=== PATIENT | male | born 1950 | race Caucasian/White ===

== ENCOUNTER → 2016-10-20 | Outpatient (CLI) | payer OTHER ==
[~2016-10-20] MED LIST: ASP81TEC; CHOLESTEROL MED; MTP25TSR; OMEP20CA6 PO; PRAV80TA2 PO; SMV10T
[2016-10-20 11:33] LABS: ANION GAP 9 MMOL/L (5-14); BLOOD UREA NITROGEN 8 MG/DL (7-18); BUN/CREATININE RATIO 9; CARBON DIOXIDE 26 MMOL/L (21-32); CHLORIDE 103 MMOL/L (98-107); CREATININE SERUM 0.87 MG/DL (0.60-1.30); POTASSIUM 4.3 MMOL/L (3.6-5.0); SODIUM 138 MMOL/L (135-145)
[2016-10-20 11:34] LABS: ALANINE AMINOTRANSFERASE 25 U/L (0-55); ALBUMIN 4.3 G/DL (3.2-4.5); ASPARTATE AMINO TRANSFERASE 24 U/L (5-34); BILIRUBIN,TOTAL 0.9 MG/DL (0.1-1.0); CALCIUM 9.5 MG/DL (8.5-10.1); CHOLESTEROL 162 MG/DL (< 200); DIRECT LDL 88 MG/DL (1-129); GFR ESTIMATED > 60; GLUCOSE 101 MG/DL (70-105); TOTAL PROTEIN 7.2 G/DL (6.4-8.2); TRIGLYCERIDES 95 MG/DL (<150); VLDL CHOLESTEROL 19 MG/DL (5-40)
== END ==
LOC: LAB 10:47
PROVIDERS: ATTEND Nurse Practitioner Family
DX: E78.5 Hyperlipidemia, unspecified (principal); I25.10 Atherosclerotic heart disease of native coronary artery without angina pectoris
CPT/HCPCS: 36415; 80053; 80061

== ENCOUNTER → 2017-05-06 | Outpatient (CLI) | payer OTHER ==
[2017-05-06 14:36] LABS: ALANINE AMINOTRANSFERASE 19 U/L (0-55); ALBUMIN 4.3 GM/DL (3.2-4.5); ANION GAP 12 MMOL/L (5-14); ASPARTATE AMINO TRANSFERASE 23 U/L (5-34); BLOOD UREA NITROGEN 8 MG/DL (7-18); BUN/CREATININE RATIO 10; CALCIUM 9.6 MG/DL (8.5-10.1); CARBON DIOXIDE 22 MMOL/L (21-32); CHLORIDE 104 MMOL/L (98-107); CHOLESTEROL 147 MG/DL (< 200); CREATININE SERUM 0.83 MG/DL (0.60-1.30); DIRECT LDL 87 MG/DL (1-129); GFR ESTIMATED > 60; GLUCOSE 97 MG/DL (70-105); SODIUM 138 MMOL/L (135-145); TOTAL PROTEIN 7.5 GM/DL (6.4-8.2); TRIGLYCERIDES 87 MG/DL (<150); VLDL CHOLESTEROL 17 MG/DL (5-40)
== END ==
LOC: LAB 13:51
PROVIDERS: ATTEND Nurse Practitioner Family
DX: I25.10 Atherosclerotic heart disease of native coronary artery without angina pectoris (principal); E78.5 Hyperlipidemia, unspecified
CPT/HCPCS: 36415; 80053; 80061

== ENCOUNTER → 2017-11-23 | Outpatient (CLI) | payer SELFPAY ==
[2017-11-23 15:03] LABS: ALANINE AMINOTRANSFERASE 24 U/L (0-55); ALBUMIN 4.5 GM/DL (3.2-4.5); ALKALINE PHOSPHATASE 80 U/L (40-136); BUN/CREATININE RATIO 13; CALCIUM 9.7 MG/DL (8.5-10.1); CARBON DIOXIDE 28 MMOL/L (21-32); CHLORIDE 104 MMOL/L (98-107); CHOLESTEROL 157 MG/DL (< 200); CREATININE SERUM 0.87 MG/DL (0.60-1.30); GFR ESTIMATED > 60; GLUCOSE 96 MG/DL (70-105); HDL CHOLESTEROL 58 MG/DL (40-60); POTASSIUM 4.2 MMOL/L (3.6-5.0); SODIUM 138 MMOL/L (135-145); TOTAL PROTEIN 7.6 GM/DL (6.4-8.2); TRIGLYCERIDES 75 MG/DL (<150); VLDL CHOLESTEROL 15 MG/DL (5-40)
== END ==
LOC: LAB 14:14
PROVIDERS: ATTEND Nurse Practitioner Family
DX: I25.10 Atherosclerotic heart disease of native coronary artery without angina pectoris (principal); E78.5 Hyperlipidemia, unspecified
CPT/HCPCS: 36415; 80053; 80061

== ENCOUNTER → 2018-05-25 | Outpatient (CLI) | payer OTHER ==
[2018-05-25 11:35] LABS: ALANINE AMINOTRANSFERASE 25 U/L (0-55); ALBUMIN 4.4 GM/DL (3.2-4.5); ALKALINE PHOSPHATASE 87 U/L (40-136); BUN/CREATININE RATIO 13; CALCIUM 9.6 MG/DL (8.5-10.1); CARBON DIOXIDE 24 MMOL/L (21-32); CHLORIDE 105 MMOL/L (98-107); CHOLESTEROL 137 MG/DL (< 200); CREATININE SERUM 0.85 MG/DL (0.60-1.30); GFR ESTIMATED > 60; GLUCOSE 103 MG/DL (70-105); HDL CHOLESTEROL 37 MG/DL (40-60); POTASSIUM 4.3 MMOL/L (3.6-5.0); SODIUM 137 MMOL/L (135-145); TOTAL PROTEIN 7.2 GM/DL (6.4-8.2); TRIGLYCERIDES 60 MG/DL (<150); VLDL CHOLESTEROL 12 MG/DL (5-40)
== END ==
LOC: LAB 11:00
PROVIDERS: ATTEND Nurse Practitioner Family
DX: E78.5 Hyperlipidemia, unspecified (principal); I25.10 Atherosclerotic heart disease of native coronary artery without angina pectoris; I65.29 Occlusion and stenosis of unspecified carotid artery
CPT/HCPCS: 36415; 80053; 80061

== ENCOUNTER → 2018-07-20 | Outpatient (CLI) | payer MEDICARE, OTHER ==
[~2018-07-20] VITALS: Ht 180.3 cm; Wt 86.6 kg
[~2018-07-20] MED LIST changes: +CATHETER FLUSH 10 ML SYR IV PRN; +REGADENOSON 0.4 MG/5 ML SYR (LEXISCAN) IV ONE
[2018-07-20 09:11] VITALS: BP 135/90
[2018-07-20 09:16] VITALS: BP 128/94
--- NOTE | 2018-07-20 12:34 | STRESS TEST ---
DATE OF SERVICE: 07/20/2018 RESTING AND POST REGADENOSON TECHNETIUM-99M TETROFOSMIN SPECT CT IMAGING ORDERING PHYSICIAN: Dinorah Yan APRN CLINICAL DIAGNOSES: Chest discomfort, coronary artery disease. Baseline images were carried out after injection of 10.92 mCi of technetium-99m Tetrofosmin. This was followed by 0.4 mg of regadenoson and 31.7 mCi of technetium-99m Tetrofosmin for stress imaging. The electrocardiogram showed sinus rhythm at baseline and it did not change significantly with the regadenoson infusion. The patient tolerated the procedure well. Review of images at rest and following stress does not indicate any significant perfusion defect consistent with significant myocardial ischemia or infarction. Gated images show normal global left ventricular systolic function with normal regional wall motion. Left ventricular ejection fraction is calculated to be 65%. Left ventricular end diastolic volume is 53 mL. TID is absent (0.93). CONCLUSIONS: 1. No evidence of any significant myocardial ischemia or infarction on this study. 2. Normal regional wall motion. 3. Normal global left ventricular systolic function with a calculated ejection fraction of 65%. Job ID: [id number] DocumentID: [id number] Dictated Date: 07/20/2018 12:25:25 Concrete Boom Operator Date: 07/20/2018 12:33:30 Dictated By: ANASTASIA EASTON MD, MA, FACP, FACC,
== END ==
LOC: CARD 07:40
PROVIDERS: ATTEND Nurse Practitioner Family
DX: I25.10 Atherosclerotic heart disease of native coronary artery without angina pectoris (principal); R07.89 Other chest pain; I77.89 Other specified disorders of arteries and arterioles; E78.5 Hyperlipidemia, unspecified
CPT/HCPCS: 78452; 93017

== ENCOUNTER → 2019-03-07 | Outpatient (CLI) | payer MEDICARE ==
[~2019-03-07] MED LIST changes: -CATHETER FLUSH 10 ML SYR IV PRN; -REGADENOSON 0.4 MG/5 ML SYR (LEXISCAN) IV ONE
[2019-03-07 12:53] LABS: BASOPHILS # (AUTO) 0.1 10^3/uL (0.0-0.1); BASOPHILS % (AUTO) 1 % (0-10); EOSINOPHILS # (AUTO) 0.1 10^3/uL (0.0-0.3); EOSINOPHILS % (AUTO) 2 % (0-10); HEMATOCRIT 46 % (40-54); HEMOGLOBIN 15.5 G/DL (13.3-17.7); LYMPHOCYTES # (AUTO) 2.9 X 10^3 (1.0-4.0); LYMPHOCYTES % (AUTO) 40 % (12-44); MEAN CORPUSCULAR HEMOGLOBIN 32 PG (25-34); MEAN CORPUSCULAR HGB CONC 34 G/DL (32-36); MEAN CORPUSCULAR VOLUME 95 FL (80-99); MEAN PLATELET VOLUME 10.3 FL (7.4-10.4); MONOCYTES # (AUTO) 0.6 X 10^3 (0.0-1.0); MONOCYTES % (AUTO) 8 % (0-12); NEUTROPHILS # (AUTO) 3.6 X 10^3 (1.8-7.8); NEUTROPHILS % (AUTO) 49 % (42-75); PLATELET COUNT 193 10^3/uL (130-400); RED CELL DISTRIBUTION WIDTH 13.1 % (10.0-14.5); WHITE BLOOD COUNT 7.3 10^3/uL (4.3-11.0)
[2019-03-07 13:19] LABS: ALANINE AMINOTRANSFERASE 17 U/L (0-55); ALBUMIN 4.2 GM/DL (3.2-4.5); ALKALINE PHOSPHATASE 66 U/L (40-136); BILIRUBIN,TOTAL 1.1 MG/DL (0.1-1.0); BUN/CREATININE RATIO 14; CALCIUM 9.5 MG/DL (8.5-10.1); CARBON DIOXIDE 23 MMOL/L (21-32); CHLORIDE 108 MMOL/L (98-107); CHOLESTEROL 141 MG/DL (< 200); CREATININE SERUM 0.86 MG/DL (0.60-1.30); GFR ESTIMATED > 60; GLUCOSE 98 MG/DL (70-105); HDL CHOLESTEROL 52 MG/DL (40-60); POTASSIUM 4.1 MMOL/L (3.6-5.0); SODIUM 139 MMOL/L (135-145); TOTAL PROTEIN 6.9 GM/DL (6.4-8.2); TRIGLYCERIDES 61 MG/DL (<150); VLDL CHOLESTEROL 12 MG/DL (5-40)
[2019-03-07 13:39] LABS: ERYTHROCYTE SEDIMENTATION RATE 5 MM/HR (0-30)
== END ==
LOC: LAB 12:40
PROVIDERS: ATTEND Internal Medicine Cardiovascular Disease
DX: I25.10 Atherosclerotic heart disease of native coronary artery without angina pectoris (principal); E78.5 Hyperlipidemia, unspecified; J44.9 Chronic obstructive pulmonary disease, unspecified; Z72.0 Tobacco use
CPT/HCPCS: 36415; 80053; 80061; 83735; 85025; 85652

== ENCOUNTER → 2019-10-04 | Outpatient (CLI) | payer MEDICARE ==
[2019-10-04 10:20] LABS: ALANINE AMINOTRANSFERASE 22 U/L (0-55); ALBUMIN 4.1 GM/DL (3.2-4.5); ALKALINE PHOSPHATASE 64 U/L (40-136); BILIRUBIN,TOTAL 1.1 MG/DL (0.1-1.0); BUN/CREATININE RATIO 13; CALCIUM 9.6 MG/DL (8.5-10.1); CARBON DIOXIDE 25 MMOL/L (21-32); CHLORIDE 104 MMOL/L (98-107); CHOLESTEROL 142 MG/DL (< 200); CREATININE SERUM 0.88 MG/DL (0.60-1.30); GFR ESTIMATED > 60; GLUCOSE 102 MG/DL (70-105); HDL CHOLESTEROL 58 MG/DL (40-60); POTASSIUM 4.3 MMOL/L (3.6-5.0); SODIUM 138 MMOL/L (135-145); TOTAL PROTEIN 6.8 GM/DL (6.4-8.2); TRIGLYCERIDES 84 MG/DL (<150); VLDL CHOLESTEROL 17 MG/DL (5-40)
== END ==
LOC: LAB 09:49
PROVIDERS: ATTEND Nurse Practitioner Family
DX: I25.10 Atherosclerotic heart disease of native coronary artery without angina pectoris (principal); E78.5 Hyperlipidemia, unspecified
CPT/HCPCS: 36415; 80053; 80061

== ENCOUNTER → 2020-03-27 | Outpatient (CLI) | payer MEDICARE ==
[2020-03-27 08:37] LABS: ALANINE AMINOTRANSFERASE 19 U/L (0-55); ALBUMIN 4.1 GM/DL (3.2-4.5); ALKALINE PHOSPHATASE 71 U/L (40-136); BILIRUBIN,TOTAL 1.2 MG/DL (0.1-1.0); BUN/CREATININE RATIO 15; CALCIUM 9.2 MG/DL (8.5-10.1); CARBON DIOXIDE 22 MMOL/L (21-32); CHLORIDE 107 MMOL/L (98-107); CHOLESTEROL 138 MG/DL (< 200); CREATININE SERUM 0.85 MG/DL (0.60-1.30); GFR ESTIMATED > 60; GLUCOSE 107 MG/DL (70-105); HDL CHOLESTEROL 55 MG/DL (40-60); POTASSIUM 4.2 MMOL/L (3.6-5.0); SODIUM 139 MMOL/L (135-145); TRIGLYCERIDES 45 MG/DL (<150); VLDL CHOLESTEROL 9 MG/DL (5-40)
== END ==
LOC: LAB 07:58
PROVIDERS: ATTEND Nurse Practitioner Family
DX: I25.10 Atherosclerotic heart disease of native coronary artery without angina pectoris (principal); E78.5 Hyperlipidemia, unspecified
CPT/HCPCS: 36415; 80053; 80061

== ENCOUNTER → 2020-06-19 | Outpatient (CLI) | payer MEDICARE ==
[~2020-06-19] VITALS: Ht 180 cm; Wt 84.0 kg
[~2020-06-19] MED LIST changes: +REGADENOSON 0.4 MG/5 ML SYR (LEXISCAN) IV ONE
[2020-06-19] MEDS: CATHETER FLUSH 10 ML SYR IV PRN ×2 (08:33→09:47)
[2020-06-19 09:46] VITALS: BP 140/74
--- NOTE | 2020-06-19 20:44 | STRESS TEST ---
DATE OF SERVICE: 06/19/2020 RESTING AND POST REGADENOSON TECHNETIUM-99M TETROFOSMIN SPECT CT IMAGING ORDERING PHYSICIAN: Dr. Doss. PRIMARY PHYSICIAN: [facility]. CLINICAL DIAGNOSES: Coronary artery disease. Baseline images were carried out after injection of 1.07 mCi of technetium-99m Tetrofosmin. This was followed by 0.4 mg regadenoson and 29.8 mCi of technetium-99M Tetrofosmin for stress imaging. The electrocardiogram showed sinus rhythm at baseline. It did not change significantly with regadenoson infusion. The patient tolerated the procedure well. Review of images at rest and following stress does not indicate any distinct perfusion defects consistent with significant myocardial ischemia or infarction. Some degree of diaphragmatic attenuation seen both at rest and following regadenoson infusion. Gated images show normal global left ventricular systolic function with normal regional wall motion, including the diaphragmatic wall of the left ventricle. Left ventricular ejection fraction is calculated to be 50%. Left ventricular end diastolic volume is 67 mL. TID is absent (1.03). CONCLUSIONS: 1. No evidence of any significant myocardial ischemia or infarction on this study. 2. Normal regional wall motion. 3. Normal global left ventricular systolic function with a calculated ejection fraction of 50%. Job ID: [id number] DocumentID: [id number] Dictated Date: 06/19/2020 14:09:23 Peanut Grader Date: 06/19/2020 20:43:38 Dictated By: ANASTASIA DOSS MD, MA, FACP, FACC,
== END ==
LOC: CARD 08:30
PROVIDERS: ATTEND Internal Medicine Cardiovascular Disease
DX: I25.10 Atherosclerotic heart disease of native coronary artery without angina pectoris (principal); J44.9 Chronic obstructive pulmonary disease, unspecified; K21.9 Gastro-esophageal reflux disease without esophagitis; E78.5 Hyperlipidemia, unspecified; I65.29 Occlusion and stenosis of unspecified carotid artery; Z72.0 Tobacco use
CPT/HCPCS: 78452; 93017; A9502

== ENCOUNTER → 2020-09-12 | Outpatient (CLI) | payer MEDICARE ==
[~2020-09-12] MED LIST changes: -REGADENOSON 0.4 MG/5 ML SYR (LEXISCAN) IV ONE
[2020-09-12 10:57] LABS: ALANINE AMINOTRANSFERASE 25 U/L (0-55); ALBUMIN 4.4 GM/DL (3.2-4.5); ALKALINE PHOSPHATASE 82 U/L (40-136); BILIRUBIN,TOTAL 1.3 MG/DL (0.1-1.0); BUN/CREATININE RATIO 9; CALCIUM 9.4 MG/DL (8.5-10.1); CARBON DIOXIDE 25 MMOL/L (21-32); CHLORIDE 104 MMOL/L (98-107); CHOLESTEROL 151 MG/DL (< 200); CREATININE SERUM 0.85 MG/DL (0.60-1.30); GFR ESTIMATED > 60; GLUCOSE 103 MG/DL (70-105); HDL CHOLESTEROL 62 MG/DL (40-60); POTASSIUM 4.3 MMOL/L (3.6-5.0); SODIUM 138 MMOL/L (135-145); TOTAL PROTEIN 7.7 GM/DL (6.4-8.2); TRIGLYCERIDES 110 MG/DL (<150); VLDL CHOLESTEROL 22 MG/DL (5-40)
== END ==
LOC: LAB 10:16
PROVIDERS: ATTEND Nurse Practitioner Family
DX: I25.10 Atherosclerotic heart disease of native coronary artery without angina pectoris (principal); E78.5 Hyperlipidemia, unspecified
CPT/HCPCS: 36415; 80053; 80061

== ENCOUNTER → 2020-11-23 | Outpatient (CLI) | payer MEDICARE ==
--- NOTE | 2020-11-23 13:49 | Diagnostic Imaging Report ---
PROCEDURE: CT chest without contrast. TECHNIQUE: Multiple contiguous axial images were obtained through the chest without the use of intravenous contrast. Auto Exposure Controls were utilized during the CT exam to meet ALARA standards for radiation dose reduction. INDICATION: Tobaccoism COMPARISON: No priors. There is heterogeneous air trapping and features of centrilobular emphysema diffusely. Lung hyperexpansion is symmetric. There are very mild basilar zones of partial atelectasis. No evidence for pneumonia. No soft tissue density, lung mass and no suspicious pulmonary nodule. There is a moderate-sized retrocardiac hernia. No lymphadenopathy. The thoracic aorta is nonaneurysmal. There is no effusion or pneumothorax. No acute soft tissue or osseous chest wall pathology. Upper abdomen shows a fat-containing left adrenal circumscribed nodule 2.1 cm consistent with benign adenoma. There is either sludge or tiny minimally calcified stones layering within the nondilated gallbladder. IMPRESSION: Centrilobular emphysema, hiatal hernia, cholelithiasis and/or gallbladder sludge with benign fat-containing left adrenal nodule. Dictated by: Dictated on workstation # [id number]
== END ==
LOC: RAD 13:45
PROVIDERS: ATTEND Pediatrics
DX: J43.2 Centrilobular emphysema (principal); K44.9 Diaphragmatic hernia without obstruction or gangrene; K80.20 Calculus of gallbladder without cholecystitis without obstruction; E27.8 Other specified disorders of adrenal gland; Z72.0 Tobacco use
CPT/HCPCS: 71250

== ENCOUNTER 2021-03-18 05:39 | Outpatient (CLI) | payer MEDICARE ==
[~2021-03-18] VITALS: Ht 180.3 cm; Wt 84.0 kg
[2021-03-18] MEDS ORDERED: TIOT4MIS5 IH (14:11)
== END 2021-03-18 15:42 | disposition home or self-care (01) ==
LOC: PREOP 05:39
PROVIDERS: ATTEND Surgery
DX: Z01.818 Encounter for other preprocedural examination (principal)

== ENCOUNTER 2021-03-25 07:28 | Day surgery (SDC) | payer MEDICARE ==
[~2021-03-25] VITALS: Ht 180.3 cm; Wt 84.0 kg
[~2021-03-25 07:28] MED LIST changes: +TIOT4MIS5 IH
[2021-03-25] MEDS ORDERED: LACTATED RINGERS 1,000 ML IV STA (07:37)
[2021-03-25] MEDS ORDERED: LACTATED RINGERS 1,000 ML IV ONE (07:39)
[2021-03-25] MEDS ORDERED: MIDAZOLAM 2 MG/2 ML (VERSED) VIAL ONE (07:41)
[2021-03-25] MEDS ORDERED: PROPOFOL INJECTION 50 ML IV ONE (07:41)
[2021-03-25 07:45] VITALS: BP 114/79
--- NOTE | 2021-03-25 08:26 | Progress Note-Pre Operative ---
Pre-Operative Progress Note H&P Reviewed The H&P was reviewed, patient examined and no changes noted. Time Seen by Provider: 08:21 Date H&P Reviewed: Mar 25, 2021 Time H&P Reviewed: 08:21 Pre-Operative Diagnosis: screening colonoscopy DONTAE TUCKER DO Mar 25, 2021 08:26
[2021-03-25 08:55] VITALS: BP 90/62
[2021-03-25 09:00] VITALS: BP 87/60
--- NOTE | 2021-03-25 09:02 | Progress Note-Post Operative ---
Post-Operative Progess Note Surgeon (s)/Out And Out Cigar Maker Hand (s) Surgeon DONTAE TUCKER DO Out And Out Cigar Maker Hand: TITUS Bain Pre-Operative Diagnosis screening colonoscopy Post-Operative Diagnosis Polyp Diverticula Int hemorrhoids Procedure & Operative Findings Date of Procedure 03/25/21 Procedure Performed/Findings Colonoscopy with Snare polypectomy After informed consent was obtained, the patient was brought to the endoscopy suite and placed in the bed in the left lateral decubitus position. He was administered IV sedation by the BALLROOM DANCER, who then monitored his vitals the entire time, heart rate, blood pressure and pulse ox and the scope was inserted, started the colonoscopy. Pushed all the way into about 140 cm to get all the way to cecum, took a picture of the appendiceal orifice, noted the ileocecal valve and then slowly withdrew the scope, insufflating the circumferential cross looking the cecum, up the ascending colon to the hepatic flexure, then down the transverse colon, splenic flexure, into the descending colon. Found a polyp in the descending colon and did a snare polypectomy. Then continued down into the sigmoid (where I saw diverticula and took pics) and finally into the rectum, retroflexed in the rectal vault, saw some minimal internal hemorrhoids and took a picture of this. The patient tolerated the procedure and he recovered in the endoscopy suite. Anesthesia Type IV sedation by BALLROOM DANCER Estimated Blood Loss Estimated blood loss (mL): scant Specimens/Packing Specimens Removed desc colon polyp DONTAE TUCKER DO Mar 25, 2021 09:02
--- NOTE | 2021-03-25 09:03 | Endoscopy Discharge Instruct ---
Endo Procedure/Findings Findings 1.: Polyp 2.: Diverticulosis 3.: Internal Hemorrhoids Discharge Instructions - Activity: You might feel a little sleepy until tomorrow. This is due to the medicine you received to relax you. Until tomorrow, you should: NOT drive a car, operate machinery or power tools. NOT drink any alcoholic beverages. NOT make any important decisions or sign importortant papers. Do not return to work until tomorrow, unless otherwise instructed. Resume previous activities tomorrow. Diet: Start by taking liquids. If you tolerate liquids, advance to solid food. 1.: Colonscopy in 5 years Notify Physician - If you experience excessive bleeding, unusual abdominal pain, fever, or chest pain, contact your doctor immediately. DONTAE TUCKER DO Mar 25, 2021 09:03
[2021-03-25 09:05] VITALS: BP 87/53
[2021-03-25 09:10] VITALS: BP 87/53
[2021-03-25 09:30] VITALS: BP 100/77
--- NOTE | 2021-03-25 12:10 | Anesthesia-General Post-Op ---
MAC Patient Condition Mental Status/LOC: Same as Preop Cardiovascular: Satisfactory Nausea/Vomiting: Absent Respiratory: Satisfactory Pain: Controlled Complications: Absent Post Op Complications Complications None Follow Up Care/Instructions Patient Instructions None needed. Anesthesiology Discharge Order Discharge Order Patient is doing well, no complaints, stable vital signs, no apparent adverse anesthesia problems. No complications reported per nursing. ALISSA SCHWARTZ CRNA Mar 25, 2021 12:10
== END 2021-03-25 09:30 | disposition home or self-care (01) ==
LOC: ENDO 07:28
PROVIDERS: ATTEND Surgery
DX: Z12.11 Encounter for screening for malignant neoplasm of colon (principal); K63.5 Polyp of colon; K57.30 Diverticulosis of large intestine without perforation or abscess without bleeding; K64.8 Other hemorrhoids; J44.9 Chronic obstructive pulmonary disease, unspecified; K21.9 Gastro-esophageal reflux disease without esophagitis; M19.90 Unspecified osteoarthritis, unspecified site; E78.2 Mixed hyperlipidemia; I65.23 Occlusion and stenosis of bilateral carotid arteries; I25.10 Atherosclerotic heart disease of native coronary artery without angina pectoris; F17.210 Nicotine dependence, cigarettes, uncomplicated; Z79.82 Long term (current) use of aspirin; Z79.899 Other long term (current) drug therapy; Z79.51 Long term (current) use of inhaled steroids
CPT/HCPCS: 88305

== ENCOUNTER 2021-11-01 05:39 | Outpatient (CLI) | payer MEDICARE ==
[~2021-11-01] VITALS: Ht 177.8 cm; Wt 88.2 kg
== END 2021-11-19 17:35 | disposition home or self-care (01) ==
LOC: PREOP 05:39
PROVIDERS: ATTEND Specialist
DX: Z01.818 Encounter for other preprocedural examination (principal)

== ENCOUNTER 2021-11-08 10:04 | Day surgery (SDC) | payer MEDICARE ==
[~2021-11-08] VITALS: Ht 180.4 cm; Wt 88.2 kg
[2021-11-08] MEDS ORDERED: POVIDONE (BETADINE) OPHTH SOLN 5% 30 ML OP ONE (10:15)
[2021-11-08] MEDS ORDERED: TIMOLOL MALEATE 0.5% 5 ML (TIMOPTIC) BTL OU PRN (10:15)
[2021-11-08] MEDS ORDERED: MOXIFLOXACIN OPHTH SOLN 5 MG/ML 0.3 ML SYRINGE OP ONE (10:15)
[2021-11-08] MEDS ORDERED: LIDOCAINE PF 1% 2 ML VIAL IR PRN (10:15)
[2021-11-08] MEDS: TETRACAINE 0.5% OPHTH SOLN 4 ML BTL (SINGLE DOSE ONLY) OU PRN ×4 (10:22→10:39)
[2021-11-08] MEDS: PHENYLEPHRINE 10% OPHTH (NEO-SYN) 5 ML BTL OU SCH ×3 (10:28→10:39)
[2021-11-08] MEDS: TROPICAMIDE 1% OPH SOLN (MYDRIACYL) 15 ML BTL OP SCH ×3 (10:28→10:39)
[2021-11-08 10:31] VITALS: BP 126/82
--- NOTE | 2021-11-08 11:05 | Ophthalmologist Pre-Op Note ---
Pre-Operative Progress Note H&P Reviewed The H&P was reviewed, patient examined and no changes noted. Date H&P Reviewed: Nov 08, 2021 Time H&P Reviewed: 11:04 Pre-Op Dx Cataract, Right Eye LUIS MIGUEL KIMBROUGH MD Nov 08, 2021 11:05
[2021-11-08] MEDS ORDERED: MIDAZOLAM 2 MG/2 ML (VERSED) VIAL ONE (11:08)
--- NOTE | 2021-11-08 11:28 | Ophthalmology Operative Report ---
Cataract removal/placement IOL PREOPERATIVE DIAGNOSIS: Cataract Right Eye POSTOPERATIVE DIAGNOSIS: Cataract Right Eye PROCEDURE: Cataract removal and placement of posterior chamber implant, right eye SURGEON: Jeb Kimbrough ANESTHESIA: Topical with sedation COMPLICATIONS: None ESTIMATED BLOOD LOSS: Minimal DESCRIPTION OF PROCEDURE: After proper informed consent was obtained, the patient, a 71 male, was taken to the Operating Room and the right eye was anesthetized with tetracaine. The right eye was then prepped and draped in the usual manner. A wire lid speculum was placed. A paracentesis was made at the left hand position. Preservative free lidocaine was injected into the anterior chamber followed by viscoelastic. A clear corneal incision was made in the temporal position. A capsulorrhexis was preformed and the central nuclear and cortical material were removed. The posterior capsule was polished and Gregory 21.5 AU00T0 IOL was placed into the capsular bag. The residual viscoelastic was aspirated and balanced saline solution was injected into the anterior chamber. Moxifloxacin was injected into the anterior chamber. The wound was checked and found to be water tight. The patient tolerated the procedure well without complications. JEB KIMBROUGH MD Nov 08, 2021 11:28
[2021-11-08 11:36] VITALS: BP 126/91
[2021-11-08] MEDS ORDERED: acetaZOLAMIDE ER 500 MG CAP (DIAMOX SEQUELS) PO ONE (12:30)
--- NOTE | 2021-11-08 12:33 | Anesthesia-General Post-Op ---
MAC Patient Condition Mental Status/LOC: Same as Preop Cardiovascular: Satisfactory Nausea/Vomiting: Absent Respiratory: Satisfactory Pain: Controlled Complications: Absent Post Op Complications Complications None Follow Up Care/Instructions Patient Instructions None needed. Anesthesiology Discharge Order Discharge Order Patient is doing well, no complaints, stable vital signs, no apparent adverse anesthesia problems. No complications reported per nursing. KANDICE MENDOZA CRNA Nov 08, 2021 12:33
== END 2021-11-08 11:39 | disposition home or self-care (01) ==
LOC: SDC 10:04
PROVIDERS: ATTEND Specialist
DX: H25.9 Unspecified age-related cataract (principal); Z72.0 Tobacco use
CPT/HCPCS: 66984; V2632

== ENCOUNTER 2021-11-22 10:00 | Day surgery (SDC) | payer MEDICARE ==
[~2021-11-22] VITALS: Ht 177.8 cm; Wt 88.2 kg
[2021-11-22 10:20] VITALS: BP 126/93
[2021-11-22] MEDS ORDERED: LIDOCAINE PF 1% 2 ML VIAL IR PRN (10:30)
[2021-11-22] MEDS ORDERED: MOXIFLOXACIN OPHTH SOLN 5 MG/ML 0.3 ML SYRINGE OP ONE (10:30)
[2021-11-22] MEDS ORDERED: POVIDONE (BETADINE) OPHTH SOLN 5% 30 ML OP ONE (10:30)
[2021-11-22] MEDS ORDERED: TIMOLOL MALEATE 0.5% 5 ML (TIMOPTIC) BTL OU PRN (10:30)
[2021-11-22] MEDS: TETRACAINE 0.5% OPHTH SOLN 4 ML BTL (SINGLE DOSE ONLY) OU PRN ×4 (10:35→10:51)
[2021-11-22] MEDS: PHENYLEPHRINE 10% OPHTH (NEO-SYN) 5 ML BTL OU SCH ×3 (10:41→10:51)
[2021-11-22] MEDS: TROPICAMIDE 1% OPH SOLN (MYDRIACYL) 15 ML BTL OP SCH ×3 (10:41→10:51)
[2021-11-22] MEDS ORDERED: MIDAZOLAM 2 MG/2 ML (VERSED) VIAL ONE (11:22)
[2021-11-22] MEDS ORDERED: acetaZOLAMIDE ER 500 MG CAP (DIAMOX SEQUELS) PO ONE (11:30)
--- NOTE | 2021-11-22 11:37 | Ophthalmology Operative Report ---
Cataract removal/placement IOL PREOPERATIVE DIAGNOSIS: Cataract Left Eye POSTOPERATIVE DIAGNOSIS: Cataract Left Eye PROCEDURE: Cataract removal and placement of posterior chamber implant, left eye SURGEON: Jeb Kimbrough ANESTHESIA: Topical with sedation COMPLICATIONS: None ESTIMATED BLOOD LOSS: Minimal DESCRIPTION OF PROCEDURE: After proper informed consent was obtained, the patient, a 71 male, was taken to the Operating Room and the left eye was anesthetized with tetracaine. The left eye was then prepped and draped in the usual manner. A wire lid speculum was placed. A paracentesis was made at the left hand position. Preservative free lidocaine was injected into the anterior chamber followed by viscoelastic. A clear corneal incision was made in the temporal position. A capsulorrhexis was preformed and the central nuclear and cortical material were removed. The posterior capsule was polished and an Gregory 22.0 AU00T0 was placed into the capsular bag. The residual viscoelastic was aspirated and balanced saline solution was injected into the anterior chamber. Moxifloxacin was injected into the anterior chamber. The wound was checked and found to be water tight. The patient tolerated the procedure well without complications. JEB KIMBROUGH MD Nov 22, 2021 11:37
--- NOTE | 2021-11-22 11:37 | Ophthalmologist Pre-Op Note ---
Pre-Operative Progress Note H&P Reviewed The H&P was reviewed, patient examined and no changes noted. Date H&P Reviewed: Nov 22, 2021 Time H&P Reviewed: 11:22 Pre-Op Dx Cataract, Left Eye LUIS MIGUEL KIMBROUGH MD Nov 22, 2021 11:37
[2021-11-22 11:41] VITALS: BP 126/84
--- NOTE | 2021-11-22 12:53 | Anesthesia-General Post-Op ---
MAC Patient Condition Mental Status/LOC: Same as Preop Cardiovascular: Satisfactory Nausea/Vomiting: Absent Respiratory: Satisfactory Pain: Controlled Complications: Absent Post Op Complications Complications None Follow Up Care/Instructions Patient Instructions None needed. Anesthesiology Discharge Order Discharge Order Patient is doing well, no complaints, stable vital signs, no apparent adverse anesthesia problems. No complications reported per nursing. KANDICE MENDOZA CRNA Nov 22, 2021 12:53
== END 2021-11-22 11:44 | disposition home or self-care (01) ==
LOC: SDC 10:00
PROVIDERS: ATTEND Specialist
DX: H25.9 Unspecified age-related cataract (principal); Z72.0 Tobacco use
CPT/HCPCS: 66984; V2632

== ENCOUNTER 2022-04-21 05:35 | Outpatient (CLI) | payer MEDICARE ==
[~2022-04-21] VITALS: Ht 181.6 cm; Wt 83.4 kg
[~2022-04-21 05:35] MED LIST changes: -RT-ALBUTEROL SULF 2.5 MG/3 ML PRE-MIX VIAL INH ONE
== END 2022-04-21 11:31 | disposition home or self-care (01) ==
LOC: PREOP 05:35
PROVIDERS: ATTEND Surgery
DX: Z01.818 Encounter for other preprocedural examination (principal)

== ENCOUNTER → 2022-04-21 | Outpatient (CLI) | payer MEDICARE ==
[~2022-04-21] MED LIST changes: +RT-ALBUTEROL SULF 2.5 MG/3 ML PRE-MIX VIAL INH ONE
== END ==
LOC: RT 09:15
PROVIDERS: ATTEND Nurse Practitioner Family
DX: R06.02 Shortness of breath (principal)
CPT/HCPCS: 93306; 94060; 94726; 94729

== ENCOUNTER → 2022-05-02 | Outpatient (CLI) | payer MEDICARE ==
[~2022-05-02] VITALS: Ht 180 cm; Wt 82.0 kg
[~2022-05-02] MED LIST changes: +CATHETER FLUSH 10 ML SYR IVP PRN; +REGADENOSON 0.4 MG/5 ML SYR (LEXISCAN) IV ONE
[2022-05-02 09:17] VITALS: BP 138/87
== END ==
LOC: CARD 07:13
PROVIDERS: ATTEND Nurse Practitioner Family
DX: I25.10 Atherosclerotic heart disease of native coronary artery without angina pectoris (principal)
CPT/HCPCS: 78452; 93017; A9502

== ENCOUNTER 2022-05-07 06:05 | Outpatient (CLI) | payer MEDICARE ==
[~2022-05-07] VITALS: Ht 181.6 cm; Wt 83.2 kg
[~2022-05-07 06:05] MED LIST changes: -CATHETER FLUSH 10 ML SYR IVP PRN; -REGADENOSON 0.4 MG/5 ML SYR (LEXISCAN) IV ONE
[2022-05-07] MEDS ORDERED: FLUT1DIS27 IH (10:25)
[2022-05-07] MEDS ORDERED: ATOR40TA70 PO (10:25)
== END 2022-05-07 11:50 | disposition home or self-care (01) ==
LOC: PREOP 06:05
PROVIDERS: ATTEND Surgery
DX: Z01.818 Encounter for other preprocedural examination (principal)

== ENCOUNTER 2022-05-19 10:08 | Day surgery (SDC) | payer MEDICARE ==
[~2022-05-19] VITALS: Ht 181.6 cm; Wt 83.2 kg
[~2022-05-19 10:08] MED LIST changes: +ATOR40TA70 PO; +FLUT1DIS27 IH
[2022-05-19 10:20] VITALS: BP 113/86
[2022-05-19] MEDS ORDERED: LACTATED RINGERS 1,000 ML IV STA (10:23)
[2022-05-19] MEDS ORDERED: HURRICAINE EXT TUBE (BENZOCAINE) XX PRN (10:30)
[2022-05-19] MEDS ORDERED: PROPOFOL INJECTION 50 ML IV ONE (12:15)
[2022-05-19 12:30] VITALS: BP 113/70
[2022-05-19 12:35] VITALS: BP 106/64
--- NOTE | 2022-05-19 12:57 | Progress Note-Post Operative ---
Post-Operative Progess Note Surgeon (s)/Air Tester (s) Surgeon DONTAE TUCKER DO Air Tester: none Pre-Operative Diagnosis GERD, Weight loss Post-Operative Diagnosis Gastritis Severe Esophagitis Large Hiatal hernia Procedure & Operative Findings Date of Procedure 05/19/22 Procedure Performed/Findings EGD with bx PROCEDURE NOTE: After informed consent was obtained, the patient was brought to the endoscopy suite, placed in bed in left lateral decubitus position. He was administered IV sedation by the LABORATORY CHEMICAL ASSISTANT who then monitored vitals the entire time, heart rate, blood pressure and pulse ox and the scope was inserted down the mouth through the esophagus into the stomach. On the way down, noted severe esophagitis, took a picture and pushed into the stomach. Noted some gastritis and pushed past the antrum into the duodenum;; duodenum looked good. Pulled back and did a biopsy of antrum, then retroflexed the scope and saw a small hiatal hernia but it appeared to have at least 1/3 of stomach above diaphragm. I took a picture of this and did a biopsy from below. Then pulled the scope into the GE junction, took another picture of the large hiatal hernia and then did two biopsies of the GE junction. Pushed the scope back into the stomach, suctioned all the air out of the stomach. At this point pulled the scope up the esophagus and out the mouth. The patient tolerated the procedure, and he recovered in endoscopy suite. Anesthesia Type IV sedation by LABORATORY CHEMICAL ASSISTANT Estimated Blood Loss Estimated blood loss (mL): scant Specimens/Packing Specimens Removed antral bx cardia bx GE jxn bx x 2 DONTAE TUCKER DO May 19, 2022 12:57
--- NOTE | 2022-05-19 12:58 | Endoscopy Discharge Instruct ---
Endo Procedure/Findings Findings 1.: Gastritis 2.: Magana's Esophagus 3.: Hiatal Hernia (very large) Discharge Instructions - Activity: You might feel a little sleepy until tomorrow. This is due to the medicine you received to relax you. Until tomorrow, you should: NOT drive a car, operate machinery or power tools. NOT drink any alcoholic beverages. NOT make any important decisions or sign importortant papers. Do not return to work until tomorrow, unless otherwise instructed. Resume previous activities tomorrow. Diet: Start by taking liquids. If you tolerate liquids, advance to solid food. 1.: EGD in 1 year Notify Physician - If you experience excessive bleeding, unusual abdominal pain, fever, or chest pain, contact your doctor immediately. DONTAE TUCKER DO May 19, 2022 12:58
--- NOTE | 2022-05-19 14:11 | Anesthesia-General Post-Op ---
MAC Patient Condition Mental Status/LOC: Same as Preop Cardiovascular: Satisfactory Nausea/Vomiting: Absent Respiratory: Satisfactory Pain: Controlled Complications: Absent Post Op Complications Complications None Follow Up Care/Instructions Patient Instructions None needed. Anesthesiology Discharge Order Discharge Order Patient is doing well, no complaints, stable vital signs, no apparent adverse anesthesia problems. No complications reported per nursing. KANDICE MENDOZA CRNA May 19, 2022 14:10
== END 2022-05-19 13:50 | disposition home or self-care (01) ==
LOC: ENDO 10:08
PROVIDERS: ATTEND Surgery
DX: K29.50 Unspecified chronic gastritis without bleeding (principal); K31.A11 Gastric intestinal metaplasia without dysplasia, involving the antrum; K31.89 Other diseases of stomach and duodenum; K22.70 Barrett's esophagus without dysplasia; K44.9 Diaphragmatic hernia without obstruction or gangrene; K21.00 Gastro-esophageal reflux disease with esophagitis, without bleeding

== ENCOUNTER → 2022-06-06 | Outpatient (CLI) | payer MEDICARE ==
[~2022-06-06] MED LIST changes: +BARIUM for suspension 96% w/w (Vanilla Silq Medium Density) PO ONE; +BARIUM for suspension 98% w/w (Vanilla Silq High Density) PO ONE
--- NOTE | 2022-06-06 15:49 | Diagnostic Imaging Report ---
INDICATION: Hiatal hernia with recent endoscopy demonstrating esophagitis and gastritis. Patient ingested effervescent crystals as well as thin and thick barium and imaging of the esophagus was performed in multiple obliquities. A total of 52 seconds of fluoroscopic time was utilized. Preliminary radiographs over the chest is unremarkable. Esophagus has a fairly smooth contour. No definite mass or stricture was detected. There is a large sliding-type hiatal hernia. The stomach is normal in configuration. No significant gastroesophageal reflux was demonstrated. IMPRESSION: Large hiatal hernia. The study is otherwise unremarkable. Dictated by: Dictated on workstation # [id number]
== END ==
LOC: RAD 11:00
PROVIDERS: ATTEND Surgery
DX: K44.9 Diaphragmatic hernia without obstruction or gangrene (principal); K21.00 Gastro-esophageal reflux disease with esophagitis, without bleeding
CPT/HCPCS: 74220

== ENCOUNTER 2022-06-18 05:31 | Outpatient (CLI) | payer MEDICARE ==
[~2022-06-18] VITALS: Ht 181.6 cm; Wt 83.0 kg
[~2022-06-18 05:31] MED LIST changes: -BARIUM for suspension 96% w/w (Vanilla Silq Medium Density) PO ONE; -BARIUM for suspension 98% w/w (Vanilla Silq High Density) PO ONE
[2022-06-18] MEDS ORDERED: ATEN50TA PO (16:34)
== END 2022-06-18 16:37 | disposition home or self-care (01) ==
LOC: PREOP 05:31
PROVIDERS: ATTEND Surgery
DX: Z01.818 Encounter for other preprocedural examination (principal)

== ENCOUNTER 2022-06-25 06:57 | Day surgery (SDC) | payer MEDICARE ==
[2022-06-25] VITALS (12 sets, daily range): BP systolic 106–148; BP diastolic 65–101
[~2022-06-25] VITALS: Ht 181.6 cm; Wt 83.0 kg
[~2022-06-25 06:57] MED LIST changes: +ATEN50TA PO
[2022-06-25] MEDS ORDERED: ceFAZolin INJECTION 2,000 MG in NS (IVPB) 50 ML IV ONE (07:30)
[2022-06-25] MEDS ORDERED: LIDOCAINE/EPI 1%-1:100,000 (XYLOCAINE) 10 ML ONE (07:35)
[2022-06-25] MEDS ORDERED: fentaNYL INJ 100 MCG/2 ML AMP ONE (07:38)
[2022-06-25] MEDS ORDERED: LIDOCAINE PF 2% 5 ML (XYLOCAINE) VIAL ONE (07:38)
[2022-06-25] MEDS ORDERED: ROCURONIUM 10 MG/ML 5 ML SYRINGE IV ONE ×2 (07:38→10:02)
[2022-06-25] MEDS ORDERED: proPOfol 200 MG/20 ML (DIPRIVAN) VIAL IV ONE (07:38)
[2022-06-25] MEDS ORDERED: MIDAZOLAM 2 MG/2 ML (VERSED) VIAL ONE (07:38)
[2022-06-25] MEDS ORDERED: ONDANSETRON 4 MG/2 ML (SDV) Z0FRAN ONE (07:38)
[2022-06-25] MEDS: LACTATED RINGERS 1,000 ML IV PRN ×2 (07:56→09:10)
--- NOTE | 2022-06-25 08:29 | Progress Note-Pre Operative ---
Pre-Operative Progress Note Date H&P Reviewed: Jun 25, 2022 Time H&P Reviewed: 08:24 History & Physical: H&P Reviewed, Patient Examed, No changes noted Pre-Operative Diagnosis: Hiatal hernia DONTAE TUCKER DO Jun 25, 2022 08:29
[2022-06-25] MEDS ORDERED: ESMOLOL 100 MG/10 ML (BREVIBLOC) VIAL ONE (09:02)
[2022-06-25] MEDS ORDERED: LIDOCAINE/EPI 1%-1:100,000 (XYLOCAINE) 20ML INJ ONE (09:04)
[2022-06-25] MEDS ORDERED: PHENYLEPHRINE 100 MCG/ML 10 ML (ANESTHESIA) SYR ONE (09:42)
[2022-06-25] MEDS ORDERED: GLYCOPYRROLATE 0.2 MG/ML (ROBINUL) 2 ML VIAL ONE (10:54)
[2022-06-25] MEDS ORDERED: SEVOFLURANE (ULTANE) 15 ML INHAL SOLN ONE (11:07)
[2022-06-25] MEDS ORDERED: morphine INJ 10 MG/ML 1ML (SYR OR VIAL) ONE (11:26)
[2022-06-25] MEDS ORDERED: MEPERIDINE (DEMEROL) INJ 50 MG/ML IVP ONE (11:30)
[2022-06-25] MEDS ORDERED: morphine INJ 10 MG/ML 1ML (SYR OR VIAL) IVP ONE (11:30)
[2022-06-25] MEDS ORDERED: PROMETHAZINE INJ 25 MG/ML (PHENERGAN) AMP IVP ONE (11:30)
[2022-06-25] MEDS ORDERED: HYDROmorphone 2 MG/ML VIAL (DILAUDID) IV ONE (11:30)
[2022-06-25] MEDS ORDERED: ONDANSETRON 4 MG/2 ML (SDV) Z0FRAN IVP PRN ×2 (11:30→13:15)
[2022-06-25] MEDS ORDERED: LACTATED RINGERS 1,000 ML IV SCH (13:15)
--- NOTE | 2022-06-25 13:24 | Progress Note-Post Operative ---
Post-Operative Progess Note Surgeon (s)/Billing Assistant (s) Surgeon DONTAE TUCKER DO Billing Assistant: Pete Pre-Operative Diagnosis Hiatal hernia Post-Operative Diagnosis same Procedure & Operative Findings Date of Procedure 06/25/22 Procedure Performed/Findings 1) Laparoscopic Hiatal hernia repair - robotic 2) Fundoplication - Gamino 180 degree, junior-lateral wrap INDICATION FOR PROCEDURE: The patient is a 71-year-old male who had an EGD performed, which showed a large hiatal hernia. Also seen on radiology exams. He was having moderate to severe chest pain from this and elected to get this repaired. FINDINGS: The patient had a hiatal hernia, moderate size with large hernia sac, weak diaphragm and right and left tamie. PROCEDURE NOTE: After informed consent was obtained, the patient was brought to the operating room, placed on the table in the supine position. He was sterilely prepped and draped in normal fashion. Local lidocaine was used to make an incision just lat eral (left side) and above the umbilicus, made an incision with #11 blade, carried down through the skin into subcutaneous tissue, then deepened down to subcutaneous tissue with Bovie electrocautery down to the fascia. Fascia was incised with Bovie electrocautery, then spread the muscle and then went through the posterior fascia bluntly, able to get into the abdomen, placed S retractor here and then placed the 12 mm and blew up the balloon, created pneumoperitoneum and then placed 3 more robotic ports, one just lateral on the right side and two about 10 cm away from this one above the umbilicus on the patient's left side, 10 cm from the first port we put in, then another 10 cm past that. All of these were done about 20 cm below the costal margin. At this point, the patient was then placed in severe reverse Trendelenburg about 25 degrees to be able to drop everything from out of the chest, could see a little bit of weakness of the crura and a hiatal hernia. At this point, I placed a suture at three points; above liver, above the tamie and on the right side just above the gallbladder. This was done to hold the liver out of the way. The robot was then docked; fenestrated bipolar was placed in the far left, then camera in the second port, the third port coming from left to right was the bipolar instrument and then far right was a tip-up robotic instrument. Able to use the tip-up to grasp at the esophageal fat pad and pull caudal caudad and medial, pulled this down, then started dissecting down. The gastrohepatic ligament or Pars Flaccida was opened with the bipolar grasper, able to get into this area and then started dissecting superiorly and inferiorly to get down to the right tamie. Able to identify the hepatic vagus branch as well as the vasculature and stay away from this. Started dissecting and once I was able to get down and get all the way through to the tamie and fully exposed the tamie, then able to get up into the mediastinum along the esophagus, able to carefully stay away from the posterior esophagus and posterior vagus as well as then started dissecting anteriorly above this to stay away from the anterior vagus. Then, we went to the left side to the left tamie, switching the tip ups to grasp the fundus of the stomach coming across the angle of HIS to release this and then started dissecting out the left tamie. Able to start to visualize the left tamie, switched back on the tip-up grasper to get under the esophagus, make sure we came all the way down to see both sides of the left and right tamie at the base, got the tip-up grasper under the esophagus, staying away from the anterior and posterior vagus and we were able to when we relaxed the stomach, saw that there was no tension or angulation. The esophagus did not get pulled into the media- stinum and we got a good 3-4 cm of esophagus into the abdominal cavity. Once we were sure that we had freed this up, sac dissection was initiated by incising the sac just below the anterior crura, divided a plane posterior to the pericardium, taking care to avoid denuding the crura and the peritoneal lining as well as staying away from the pericardium, helping to pull this down with gentle dissection on the sac. Blunt dissection laterally on either side of the esophagus. There were some diaphanous adhesions that were easily mobilized with blunt dissection as well as some with Bovie electrocautery and then small vessels taken care with the fenestrated bipolar. Once we were able to get around the esophagus and felt that we had good mobilization of it into the abdominal cavity and we then started reapproximating the crura, used a 2-0 Prolene V-Loc suture, suturing from just under the esophagus, going down, taking bites and then centimeter distance between bites, running down to the base, taking care to stay away from the aorta. This closed nicely, ran back up a little bit and then cut this off. Then elected to do a 180 degree Gamino (anterior) wrap, able to again get the tip-up underneath to hold this up and grasped the top of the fu ndus, had already come across the angle of His. We were not pulling on the spleen. I was able to get a good portion of the stomach up and threw one suture at the 2 o'clock position on the esophagus and through the Left tamie. Next, I went further out and brought more stomach across and tied at the 10 o'clock position on the esophagus and through the right tamie. Grabbed a little lower on the stomach and took a bite and then a bite on just the tamie at about 8 o'clock. Finally threw one more suture at 7 o'clock through the right tamie to close this. All of this was done with Ethibond suture. This looked really nice good wrap. We did not have a bougie but did not look like we had encroached upon anything. There was only scant bleeding. We had seen a mass on the liver and elected to take a biopsy with biopsy forceps. Sent to pathology in formalin. Closure looked good and at this point then removed the suture we had placed underneath the liver and pulled this out, placed the patient supine, removed all ports under direct visualization, allowed pneumoperitoneum to escape. Closed the right paramedian incision, closing the fascia with 0 Vicryl [id number] suture. Copiously irrigated all incisions, then closed the incision, closing the skin with asubcuticular 4-0 undyed Monocryl. Area was cleaned and dried, dressings placed. The patient tolerated the procedure. Sponge, instrument and needle count correct at the end of the case. Dr. Freeman assisted on this case helping to make incisions, close incisions, identify anatomy and pass instruments and suture. Anesthesia Type GET Estimated Blood Loss Estimated blood loss (mL): less than 20ml Specimens/Packing Specimens Removed none DONTAE TUCKER DO Jun 25, 2022 13:24
[2022-06-25] MEDS: HYDROcodone/APAP 7.5MG-325 MG/15 ML (LORTAB) UDC PO PRN (13:46)
[2022-06-25] MEDS: ceFAZolin INJECTION 2,000 MG in NS (IVPB) 50 ML IV SCH ×2 (16:52→23:14)
[2022-06-26] MEDS: HYDROcodone/APAP 7.5MG-325 MG/15 ML (LORTAB) UDC PO PRN ×2 (00:49→13:01)
[2022-06-26 03:43] VITALS: BP 120/66
--- NOTE | 2022-06-26 07:15 | Progress Note - Surgery ---
BRUCE MARIA 06/26/22 0715: Subjective Date Seen by a Provider: Jun 26, 2022 Subjective/Events-last exam Pt is POD1 from hiatal hernia repair with fundoplication. Pt is lying is bed comfortably. He reports 5/10 abominal pain located above umbilcus. Describes the pain as a dull ache. Does not radiate. Incisions are clean, dry, and intact. Pt reports he is able to ambulate halls. Nursing notes reports 100ft walks 2x yesterday after surgery. Pt denies any fever or N/V. Tolerating clear liquid diet. Pt is able to void without issue, no hematuria or dysuria. Pt reports 2 BM yesterday after surgery and 1 BM at 3AM. Reports no blood or darkness to his stool. Pt stated he used spirometer 10x yesterday, has not yet used it this morning. Review of Systems General: No Chills, No Night Sweats HEENT: No Head Aches, No Visual Changes Pulmonary: No Dyspnea; Cough (pt coughed intermittently in interview) Cardiovascular: No: Chest Pain, Lt Headedness Gastrointestinal: Abdominal Pain (5/10 above umbilicus); No: Nausea, Vomiting Genitourinary: No Dysuria, No Hematuria Neurological: No: Confusion Objective Exam Vital Signs Date Time Temp Pulse Resp B/P (MAP) Pulse Ox O2 Delivery O2 Flow Rate FiO2 06/26/22 03:43 37.0 88 18 120/66 (84) 91 Nasal Cannula 2.50 06/25/22 23:34 37.0 98 18 106/65 (79) 93 Nasal Cannula 2.50 06/25/22 19:29 Nasal Cannula 3.00 06/25/22 19:10 36.4 95 18 137/80 (99) 90 Room Air 06/25/22 15:40 36.3 95 18 110/71 (84) 93 Nasal Cannula 2.50 06/25/22 13:48 Room Air 06/25/22 12:33 35.8 84 17 134/79 (97) 91 Room Air 06/25/22 12:10 Nasal Cannula 3.00 06/25/22 12:10 36.1 16 130/85 (100) 95 Nasal Cannula 2.00 06/25/22 12:00 Nasal Cannula 3.00 06/25/22 12:00 17 124/74 (91) 92 Nasal Cannula 3.00 06/25/22 11:50 16 134/84 (101) 96 OxyMask 2.00 06/25/22 11:45 Room Air 4.00 06/25/22 11:40 14 136/101 (113) 98 OxyMask 5.00 06/25/22 11:30 20 148/94 (112) 97 OxyMask 8 06/25/22 11:30 Room Air 8 06/25/22 11:20 20 111/83 (92) 96 OxyMask 8 06/25/22 11:17 Room Air 8 06/25/22 11:17 36.3 24 140/88 (105) 96 OxyMask 8 06/25/22 07:10 36.8 75 18 121/88 (99) 97 Room Air 06/25/22 07:10 Room Air I & O 06/26/22 07:00 Intake Total 3420 ml Output Total 65 ml Balance 3355 ml Capillary Refill : General Appearance: No Apparent Distress, WD/WN HEENT: PERRL/EOMI, Moist Mucous Membranes Neck: Non Tender, Supple Respiratory: Chest Non Tender, Lungs Clear, Normal Breath Sounds, No Accessory Muscle Use Cardiovascular: Regular Rate, Rhythm, No Murmur Peripheral Pulses: 2+ Radial Pulses (R), 2+ Radial Pulses (L) Gastrointestinal: normal bowel sounds, soft, tenderness Extremity: Normal Capillary Refill, No Pedal Edema Neurologic/Psychiatric: Alert, Oriented x3 Skin: Normal Color, Warm/Dry, Other (incisions are clean, dry, and intact. Slight eccymosis around incision close to umbilicus) Results Lab Laboratory Tests 06/25/22 07:16: Glucometer 119H Assessment/Plan Assessment/Plan Assessment/Plan POD1 from hiatal hernia repair with fundoplication Pt is sore from surgery but able to ambulate, void, and pass stool without issue. Pt can likely be discharged today. BRAXTON HOUGH DO 06/26/22 1240: Subjective Time Seen by a Provider: 08:44 Subjective/Events-last exam Pt seen and examined, states min-mod pain but well controlled. He wants to go home. Review of Systems Pulmonary: No Dyspnea; Cough (pt coughed intermittently in interview) Cardiovascular: No: Chest Pain Gastrointestinal: Abdominal Pain (5/10 above umbilicus); No: Nausea, Vomiting Objective Exam General Appearance: No Apparent Distress, WD/WN Respiratory: Chest Non Tender, Lungs Clear, Normal Breath Sounds, No Accessory Muscle Use, No Respiratory Distress Cardiovascular: Regular Rate, Rhythm, No Murmur Gastrointestinal: soft, tenderness, other (incisions c/d/i) Skin: Other ( Slight eccymosis around incision close to umbilicus) Assessment/Plan Assessment/Plan Assessment/Plan POD1 from hiatal hernia repair with fundoplication Pt is sore from surgery but able to ambulate, void, and pass stool without issue. Pt can likely be discharged today. Supervisory-Addendum Brief Verification & Attestation Participated in pt care: history, MDM, physical Personally performed: exam, history, MDM, supervision of care Care discussed with: Medical Student Procedures: n/a Verification and Attestation of Medical Student E/M Service A medical student performed and documented this service. I then reviewed and verified all information documented by the medical student and made modifications to such information, when appropriate. I personally performed a physical exam, medical decision making and then discussed any differences between the notes and made revisions as necessary to create one note. Braxton Hough , 06/26/22 , 12:40 BRUCE MARIA Jun 26, 2022 07:15 BRAXTON HOUGH DO Jun 26, 2022 12:40
[2022-06-26 07:32] VITALS: BP 127/76
[2022-06-26] MEDS ORDERED: PANTOPRAZOLE 40 MG (PROTONIX) VIAL IVP SCH (09:00)
[2022-06-26 11:45] VITALS: BP 122/78
[2022-06-26] MEDS ORDERED: HYDR15SO6 PO (12:34)
--- NOTE | 2022-06-26 12:36 | Discharge Inst-Surgical ---
Discharge Inst-Surgical Depart Medication/Instructions New, Converted or Re-Newed RX: Transmitted to Pharmacy Patient Instructions Follow up Appt: Make appointment for 1 week. [phone] Instructions: No lifting greater than 20 pounds. No strenuous activity. May shower in 24 hours, no tub bath or soaking. Use incentive spirometer at home as directed. No Smoking Skin/Wound Care: May remove bandages in am. You need to leave the Dermabond on incision it will fall off on it's own. Symptoms to Report: Appetite Changes, Extremity Discoloration, Numbness/Tingling, Swelling Increased, Bleeding Excessive, Eyesight Changes, Pain Increased, Urine Color Change, Constipation(Persistent), Fever over 101 degree F, Pain/Pressure in chest, Urinating Difficulty, Cough Up/Vomit Blood, Heart Beat Irreg/Pounding, Pain/Pressure in jaw, Cramps in feet or legs, Lightheadedness, Pain/Pressure in shoulder, Diarrhea(Persistent), Memory Changes Suddenly, Questions/Concerns, Weight gain consecutive days, Dizziness/Fainting, Nausea/Vomiting, Shortness of Breath, Weight gain over 2 pounds If questions or concerns contact your physician Or seek help at emergency department. Activity Activity as Tolerated: Yes Activity Instructions: Avoid Stress to Incision Diet Discharge Diet: Liquid Diet (for 4 weeks) If Any Problems/Questions/Issu: Contact Your Physician, Go to Emergency Room Skin/Wound Care Infection Signs and Symptoms: Increased Redness, Foul Odor of Wound, Increased Drainage, Skin Itchy or Has a Rash, Increased Swelling, Temperature Above 101 F Bathing Instructions: Shower Stitches/Jermain/Dermabond Dis: DONTAE Eric DO Jun 26, 2022 12:36
[2022-06-26 13:08] VITALS: BP 122/78
--- NOTE | 2022-06-27 07:26 | Anesthesia-General Post-Op ---
General Patient Condition Mental Status/LOC: Same as Preop Cardiovascular: Satisfactory Nausea/Vomiting: Absent Respiratory: Satisfactory Pain: Controlled Complications: Absent Post Op Complications Complications None Follow Up Care/Instructions Patient Instructions None needed. Anesthesia/Patient Condition Patient Condition Post-dated progress note: Patient was already discharged to home yesterday during postop rounds at approximately 1430 but nursing staff stated he was doing well, no complaints, stable vital signs, no apparent adverse anesthesia problems prior to his discharge. No complications reported per nursing. MAXINE BANG DO Jun 27, 2022 07:26
== END 2022-06-26 13:08 ==
LOC: SDC 06:57 → 4TH 12:19 → SDC 06-26 13:08
PROVIDERS: ATTEND Surgery
DX: K44.9 Diaphragmatic hernia without obstruction or gangrene (principal); F17.210 Nicotine dependence, cigarettes, uncomplicated; K22.70 Barrett's esophagus without dysplasia
CPT/HCPCS: 82947; 87081; 94664

== ENCOUNTER 2023-01-23 21:17 | Emergency (ER) | payer MEDICARE ==
[~2023-01-23] VITALS: Ht 181.6 cm; Wt 83.0 kg
[~2023-01-23 21:17] MED LIST changes: +HYDR15SO6 PO
[2023-01-23] MEDS ORDERED: RT-ALBUTEROL/IPRATROPIUM 3 ML (DUONEB) VIAL INH ONE (21:30)
[2023-01-23] MEDS ORDERED: LACTATED RINGERS 1,000 ML IV ONE (21:30)
[2023-01-23] MEDS ORDERED: ACETAMINOPHEN 500 MG TAB (TYLENOL) PO PRN (21:30)
[2023-01-23] MEDS ORDERED: CEFEPIME INJECTION 1,000 MG in NS (IVPB) 50 ML IV ONE (21:30)
[2023-01-23] MEDS ORDERED: RT-BUDESONIDE NEBS 0.5 MG/2ML (PULMICORT) AMP INH ONE (21:30)
[2023-01-23 21:40] LABS: BASOPHILS # (AUTO) 0.1 10^3/uL (0.0-0.1); BASOPHILS % (AUTO) 1 % (0-10); EOSINOPHILS % (AUTO) 0 % (0-10); HEMATOCRIT 45 % (40-54); HEMOGLOBIN 15.2 g/dL (13.3-17.7); LYMPHOCYTES # (AUTO) 1.4 10^3/uL (1.0-4.0); LYMPHOCYTES % (AUTO) 29 % (12-44); MEAN CORPUSCULAR HEMOGLOBIN 32 pg (25-34); MEAN CORPUSCULAR HGB CONC 34 g/dL (32-36); MEAN CORPUSCULAR VOLUME 94 fL (80-99); MEAN PLATELET VOLUME 9.8 fL (9.0-12.2); MONOCYTES # (AUTO) 0.6 10^3/uL (0.0-1.0); MONOCYTES % (AUTO) 12 % (0-12); NEUTROPHILS # (AUTO) 2.8 10^3/uL (1.8-7.8); NEUTROPHILS % (AUTO) 57 % (42-75); PLATELET COUNT 220 10^3/uL (130-400); WHITE BLOOD COUNT 4.9 10^3/uL (4.3-11.0)
[2023-01-23 21:42] LABS: ALBUMIN 4.4 GM/DL (3.2-4.5); POTASSIUM 3.9 MMOL/L (3.6-5.0)
[2023-01-23 21:43] LABS: CALCIUM 9.4 MG/DL (8.5-10.1)
[2023-01-23 21:45] LABS: INR 0.9 (0.8-1.4); PROTHROMBIN TIME PATIENT 12.8 SEC (12.2-14.7); TOTAL PROTEIN 7.8 GM/DL (6.4-8.2)
[2023-01-23 21:46] LABS: BILIRUBIN,TOTAL 1.1 MG/DL (0.1-1.0)
[2023-01-23 21:48] LABS: CREATININE SERUM 1.13 MG/DL (0.60-1.30)
--- NOTE | 2023-01-23 21:48 | ED Respiratory ---
General Chief Complaint: Respiratory Problems Stated Complaint: COUGH/SOA Nursing Triage Note: COUGH/SOA SINCE 01/19/23 WORSE 01/22/23 Source: patient (LIMITED HISTORIAN), family (DAUGHTER DOES ALL TALKING FOR PT) History of Present Illness Date Seen by Provider: January 23, 2023 Time Seen by Provider: 21:21 Initial Comments PT ARRIVES VIA POV FROM HOME WITH DAUGHTER. PT STATES HE HAS BEEN SICK SINCE Thursday01/20/12, WORSE SINCE YESTERDAY C/O PRODUCTIVE COUGH, OCCASIONAL CLEAR MUCOUS SHORTNESS OF BREATH--HAS COPD AND HAS O2 AT NIGHT, AND UNKNOWN INHALERS ( ALBUTEROL AND BREZTRI) . SHORTNESS OF BREATH IS WORSE THAN NORMAL THE LAST FEW DAYS CHEST AND BACK HURT WITH COUGHING. NO PAIN WITH BREATHING PT UNAWARE OF FEVER--TEMP IS 38.4 = 101.2 ON ARRIVAL HERE PT HAS NOT TAKEN ANYTHING FOR SYMPTOMS AT ANY TIME SYMPTOMS NO DIFFERENT TONIGHT HAS NOT SOUGHT CARE UNTIL TONIGHT ( THURSDAY NIGHT) PT SMOKES UP TO 2 PACKS/ WEEK PT HAS NOT HAD COVID VACCINES. HE HAS HAD FLU AND PNEUMONIA VACCINES HE HAS A ROUTINE APPOINTMENT WITH DR. EASTON NEXT THURSDAY --PT DENIES CAD, NOT SURE WHAT KIND OF HEART PROBLEM HE HAS--POSSIBLY AN IRREGULAR HEART BEAT ? PT IS ON 81 MG ASPIRIN, NO OTHER BLOOD THINNERS [facility] Basia KIRAN WELDING ESTIMATOR: DR. MCMANUS BUSINESS DEVELOPMENT SALES EXECUTIVE: DR. EASTON Allergies and Home Medications Allergies Coded Allergies: diazepam (Verified Adverse Reaction, Unknown, GENERIC VERSION IS OKAY TO TAKE NOW PER PERSON, 06/18/22) Patient Home Medication List Home Medication List Reviewed: Yes Albuterol Sulfate (Albuterol Sulfate) 2.5 Mg/3 Ml (0.083 %) Vial.neb, 2.5 MG INH Q4H PRN for WHEEZING Prescribed by: JOSE PIPER on 01/23/23 2251 Atenolol (Atenolol) 50 Mg Tablet, 25 MG PO DAILY, (Reported) Entered as Reported by: FABRICIO ERWIN on 06/18/22 1634 Atorvastatin Calcium (Atorvastatin Calcium) 40 Mg Tablet, 40 MG PO DAILY, (Reported) Entered as Reported by: TRACY LIN on 05/07/22 1025 Azithromycin (Zithromax) 500 Mg Tablet, 500 MG PO DAILY Prescribed by: JOSE PIPER on 01/23/232250 Cefdinir (Cefdinir) 300 Mg Capsule, 300 MG PO BID Prescribed by: JOSE PIPER on 01/23/232250 Fluticasone/Salmeterol (Advair 500-50 Diskus) 500 Mcg-50 Mcg/Dose Blst.w.dev, 1 EACH IH DAILY, (Reported) Entered as Reported by: TRACY LIN on 05/07/22 1025 Guaifenesin/Dextromethorphan (Mucinex Dm ER 1,200-60 mg Tab) 1,200 Mg-60 Mg Tbmp.12hr, 1 EACH PO BID Prescribed by: JOSE PIPER on 01/23/232250 Hydrocodone Bit/Acetaminophen (Lortab 7.5-325 Mg/15 Ml Udc) 15 Ml Solution, 10 ML PO Q4H PRN for PAIN-MODERATE (5-7) Prescribed by: DONTAE TUCKER on 06/26/22 1235 Methylprednisolone (Medrol) 4 Mg Tab.ds.pk, 4 MG PO UD Prescribed by: JOSE PIPER on 01/23/232250 Tiotropium [place] (Spiriva Respimat 1.25MCG/ACTUATION) 4 Gm Mist.inhal, 2 PUFF IH DAILY, (Reported) Entered as Reported by: BORIS CALDERON on 03/18/21 1411 Review of Systems Review of Systems Constitutional: see HPI, malaise EENTM: no symptoms reported Respiratory: see HPI Cardiovascular: see HPI Gastrointestinal: no symptoms reported Genitourinary: no symptoms reported Musculoskeletal: see HPI Skin: no symptoms reported Psychiatric/Neurological: No Symptoms Reported Hematologic/Lymphatic: No Symptoms Reported Immunological/Allergic: no symptoms reported Past Iixihqi-Oqishy-Jbpole Hx Patient Social History Tobacco Use?: Yes Tobacco type used: Cigarettes Smoking Status: Current Everyday Smoker Substance use?: No Alcohol Use?: No Pt feels they are or have been: No Immunizations Up To Date Tetanus Booster (TDap): Unknown PED Vaccines UTD: No First/Initial COVID19 Vaccinat: NO Second COVID19 Vaccination Andrew: NO Third COVID19 Vaccination Date: NO Seasonal Allergies Seasonal Allergies: Yes Past Medical History Surgery/Hospitalization HX: HIATAL HERNIA, COPD, HLD, HTN, GERD Surgeries: Yes (COLONOSCOPY/EGD, RIGHT CTR, VASECTOMY, CATARACTS;HIATAL HERNIA; CARD CATH) Abdominal, Cardiac, Eye Surgery, Vasectomy Respiratory: Yes COPD Currently Using CPAP: No Currently Using BIPAP: No Cardiac: Yes Coronary Artery Disease, High Cholesterol, Hypertension, Irregular Heartbeat Neurological: No Reproductive Disorders: No Sexually Transmitted Disease: No HIV/AIDS: No Genitourinary: No Gastrointestinal: Yes (GASTRITIS) Abdominal Hernia, Gastroesophageal Reflux, Hiatal Hernia Musculoskeletal: Yes Arthritis Endocrine: No HEENT: Yes Cataract Cancer: No Psychosocial: No Integumentary: No Blood Disorders: No Adverse Reaction/Blood Tranf: No Family Medical History SOCIAL HISTORY: -SMOKES UP TO 2 PACKS / WEEK -DENIES DRUG USE -DENIES ALCOHOL USE PAST SURGICAL HISTORY: -CARDIAC CATH 02/[address] EASTON--NORMAL/MINIMAL NON-OCCLUSIVE DISEASE, EF 60% -BILATERAL CATARACT SURGERY 2021 -HIATAL HERNIA REPAIR 06/[address] TUCKER -ENDOSCOPIES Physical Exam Vital Signs - First Documented Capillary Refill : Height: 5'11.00" Weight: 191lbs. 0.0oz. 86.982610vg; 25.00 BMI Method:Stated General Appearance: WD/WN, no apparent distress, other (REEKS OF CIGARETTES; BRIEF COUGH ONE TIME DURING EXAM; DOES NOT APPEAR TO BE IN ANY DISCOMFORT OR DISTRESS) HEENT: PERRL/EOMI Neck: normal inspection Respiratory: normal breath sounds, no respiratory distress, no accessory muscle use Cardiovascular: regular rate, rhythm, no JVD, systolic murmur (1-2/6) Gastrointestinal: non tender, soft Extremities: normal inspection, no pedal edema, normal capillary refill Neurologic/Psychiatric: youth agent II-XII nml as tested, no motor/sensory deficits, alert, normal mood/affect, oriented x 3 Skin: normal color, warm/dry Focused Exam Sepsis Stage: Ruled Out Reason for ruling out sepsis: DOES NOT MEET CRITERIA Possible Source: Pulmonary Lactate Level 01/23/23 21:35: Lactic Acid Level 0.93 Time of Focused Exam: 22:00 Respiratory: Normal Breath Sounds, No Accessory Muscle Use, No Respiratory Distress Cardiovascular: Regular Rate, Rhythm, No Murmur Capillary Refill: Less Than 3 Seconds Skin: normal color, warm/dry Lactic Acid Level Laboratory Tests Test 01/23/23 21:35 Lactic Acid Level 0.93 MMOL/L (0.50-2.00) Within 3hrs of presentation: Admin fluids, Admin ABX, Blood cultures prior to ABX's, Focus exam, Lactate level Progress/Results/Core Measures Suspected Sepsis SIRS Temperature: Pulse: 102 Respiratory Rate: 18 Laboratory Tests 01/23/23 21:25: White Blood Count 4.9 Blood Pressure 115 /72 Mean: 86 01/23/23 21:35: Lactic Acid Level 0.93 Laboratory Tests 01/23/23 21:25: Creatinine 1.13, INR Comment 0.9, Platelet Count 220, Total Bilirubin 1.1H Results/Orders Lab Results Laboratory Tests Test 01/23/23 21:25 01/23/23 21:31 01/23/23 21:35 01/23/23 22:22 Range/Units White Blood Count 4.9 4.3-11.0 10^3/uL Red Blood Count 4.76 4.30-5.52 10^6/uL Hemoglobin 15.2 13.3-17.7 g/dL Hematocrit 45 40-54 % Mean Corpuscular Volume 94 80-99 fL Mean Corpuscular Hemoglobin 32 25-34 pg Mean Corpuscular Hemoglobin Concent 34 32-36 g/dL Red Cell Distribution Width 12.9 10.0-14.5 % Platelet Count 220 130-400 10^3/uL Mean Platelet Volume 9.8 9.0-12.2 fL Immature Granulocyte % (Auto) 0 % Neutrophils (%) (Auto) 57 42-75 % Lymphocytes (%) (Auto) 29 12-44 % Monocytes (%) (Auto) 12 0-12 % Eosinophils (%) (Auto) 0 0-10 % Basophils (%) (Auto) 1 0-10 % Neutrophils # (Auto) 2.8 1.8-7.8 10^3/uL Lymphocytes # (Auto) 1.4 1.0-4.0 10^3/uL Monocytes # (Auto) 0.6 0.0-1.0 10^3/uL Eosinophils # (Auto) 0.0 0.0-0.3 10^3/uL Basophils # (Auto) 0.1 0.0-0.1 10^3/uL Immature Granulocyte # (Auto) 0.0 0.0-0.1 10^3/uL Erythrocyte Sedimentation Rate 17 0-30 MM/HR Prothrombin Time 12.8 12.2-14.7 SEC INR Comment 0.9 0.8-1.4 Activated Partial Thromboplast Time 31 24-35 SEC Sodium Level 134 L 135-145 MMOL/L Potassium Level 3.9 3.6-5.0 MMOL/L Chloride Level 100 98-107 MMOL/L Carbon Dioxide Level 22 21-32 MMOL/L Anion Gap 12 5-14 MMOL/L Blood Urea Nitrogen 11 7-18 MG/DL Creatinine 1.13 0.60-1.30 MG/DL Estimat Glomerular Filtration Rate 70 BUN/Creatinine Ratio 10 Glucose Level 95 70-105 MG/DL Calcium Level 9.4 8.5-10.1 MG/DL Corrected Calcium 9.1 8.5-10.1 MG/DL Magnesium Level 1.8 1.6-2.4 MG/DL Total Bilirubin 1.1 H 0.1-1.0 MG/DL Aspartate Amino Transf (AST/SGOT) 34 5-34 U/L Alanine Aminotransferase (ALT/SGPT) 21 0-55 U/L Alkaline Phosphatase 98 40-136 U/L C-Reactive Protein High Sensitivity 4.54 H 0.00-0.50 MG/DL B-Type Natriuretic Peptide 12.3 <100.0 PG/ML Total Protein 7.8 6.4-8.2 GM/DL Albumin 4.4 3.2-4.5 GM/DL Influenza Type A (RT-PCR) Not Detected Not Detecte Influenza Type B (RT-PCR) Not Detected Not Detecte SARS-CoV-2 RNA (RT-PCR) Not Detected Not Detecte Lactic Acid Level 0.93 0.50-2.00 MMOL/L Urine Color YELLOW Urine Clarity CLEAR Urine pH 5.5 5-9 Urine Specific [place] 1.025 H 1.016-1.022 Urine Protein TRACE H NEGATIVE Urine Glucose (UA) NEGATIVE NEGATIVE Urine Ketones TRACE H NEGATIVE Urine Nitrite NEGATIVE NEGATIVE Urine Bilirubin NEGATIVE NEGATIVE Urine Urobilinogen 1.0 < = 1.0 MG/DL Urine Leukocyte Esterase NEGATIVE NEGATIVE Urine RBC (Auto) NEGATIVE NEGATIVE Urine RBC NONE /HPF Urine WBC NONE /HPF Urine Squamous Epithelial Cells 2-5 /HPF Urine Crystals NONE /LPF Urine Bacteria NEGATIVE /HPF Urine Casts NONE /LPF Urine Mucus SMALL H /LPF Urine Culture Indicated CULTURE PENDING My Orders Orders - JOSE PIPER DO Covid 19 Inhouse Test (01/23/23:) Influenza A And B By Pcr (01/23/23:) Isolation Central Supply Req (01/23/23:) Cbc With Automated Diff (01/23/23) Comprehensive Metabolic Panel (01/23/23) Blood Culture (01/23/23) Sputum Culture (01/23/23) Urinalysis (01/23/23) Urine Culture (01/23/23) Protime With Inr (01/23/23) Partial Thromboplastin Time (01/23/23) Chest 1 View, Ap/Pa Only (01/23/23) Acetaminophen Tablet (Tylenol Tablet) (01/23/23:) Ed Iv/Invasive Line Start (01/23/23) Ed Iv/Invasive Line Start (01/23/23) Vital Signs Adult Sepsis Patie Q15M (01/23/23) O2 (01/23/23) Remove Rings In Anticipation O (01/23/23) Lactic Acid Analyzer (01/23/23) Lactated Ringers (Lr 1000 Ml Iv Solution (01/23/23:) Cefepime Injection (Maxipime Injection) (01/23/23:) Albuterol/Ipra Inhalation Soln (Duoneb I (01/23/23) Budesonide Inhalation Solution (Pulmicor (01/23/23:) Rt Request For Service (01/23/23) Dexamethasone Injection (Decadron Inje (01/23/23) Monitor-Rhythm Ecg Trace Only (01/23/23) Bnp [place] (01/23/23) Hs C Reactive Protein (01/23/23) Magnesium (01/23/23:) Erythrocyte Sedimentation Rate (01/23/23:) Svn Small Volume Nebulizer (01/23/23) Svn Small Volume Nebulizer (5/19/23 21:26) Azithromycin Tablet (Zithromax Tablet) (01/23/23 22:45) Rx-Albuterol Nebs (Rx-Proventil Nebs) (01/23/23 22:43) Breathing Machine Home Use-Dme (01/23/23 22:43) Medications Given in ED Current Medications Medications Dose Ordered Sig/Ade Route Start Time Stop Time Status Last Admin Dose Admin Acetaminophen 1,000 mg ONCE PRN PO 01/23/23 21:30 01/23/23 21:42 DC 01/23/23 21:40 1,000 MG Albuterol/ Ipratropium 3 ml ONCE ONCE INH 01/23/23 21:30 01/23/23 21:31 DC 01/23/23 21:56 3 ML Azithromycin 500 mg ONCE ONCE PO 01/23/23 22:45 01/23/23 22:46 DC 01/23/23 22:59 500 MG Budesonide 0.5 mg ONCE ONCE INH 01/23/23 21:30 01/23/23 21:31 DC 01/23/23 21:56 0.5 MG Cefepime HCl 1000 mg/Sodium Chloride 50 ml @ 100 mls/hr ONCE ONCE IV 01/23/23 21:30 01/23/23 21:59 DC 01/23/23 21:41 100 MLS/HR Dexamethasone Sodium Phosphate 20 mg ONCE ONCE IV 01/23/23 21:30 01/23/23 21:31 DC 01/23/23 21:40 20 MG Lactated Ringer's 1,000 ml @ 0 mls/hr Q0M ONCE IV 01/23/23 21:30 01/23/23 21:31 DC 01/23/23 21:41 1,000 MLS/HR Vital Signs/I&O 01/23/23 01/23/23 01/23/23 01/23/23 21:21 21:21 21:25 21:40 Temp 38.4 38.3 Pulse 102 Resp 18 B/P (MAP) 115/72 (86) Pulse Ox 95 O2 Delivery Nasal Cannula Nasal Cannula Nasal Cannula O2 Flow Rate 4.00 4.00 4.00 01/23/23 01/23/23 01/23/23 21:56 22:00 23:04 Pulse 101 Resp 17 B/P (MAP) 137/78 Pulse Ox 98 98 95 O2 Delivery Nasal Cannula Nasal Cannula Nasal Cannula O2 Flow Rate 3.00 3.00 3.00 3.00 Capillary Refill : Blood Pressure Mean: 86 Progress Note : Progress Note SEPSIS PROTOCOL INITIATED COVID AND FLU TESTING DONE GIVEN: -IV FLUIDS -IV DECADRON -CEFEPIME + ORAL ZITHROMAX -NEB TREATMENTS -TYLENOL FOR FEVER PT STATES HE FEELS MUCH BETTER AFTER THE ABOVE. LUNGS CLEAR, INCREASED AERATION O2 SATS IN MID 80'S ON ARRIVAL, UP TO LOW 90'S ON O2 AT 2L/NC O2 SATS 98% ON 3L/NC PRIOR TO DISMISSAL. VITALS STABLE LABS ALL ESSENTIALLY NORMAL WITH NORMAL WBC, NO SIGNS IF DEHYDRATION, COVID AND FLU NEGATIVE. ' DOES NOT MEET SEPSIS CRITERIA PT HAS PULSE OXIMETER AT HOME SENT HOME WITH NEBULIZER AND ALBUTEROL NEBULES, AND INSTRUCTED ON USE PT AND DAUGHTER FEEL VERY COMFORTABLE WITH PT GOING HOME DISCUSSED TEST RESULTS, ANTICIPATED COURSE, SYMPTOMATIC TREATMENT, MEDICATIONS, NEED FOR FOLLOW UP AND RETURN PRECAUTIONS. Diagnostic Imaging Comments CXR--PENDING RADIOLOGIST REVIEW -RIGHT MID LUNG AND LEFT PERIHILAR INFILTRATES -PROMINENT VASCULATURE -CHRONIC CHANGES C/W COPD Reviewed: Reviewed by Me Departure Impression Primary Impression: Pneumonia Additional Impression: COPD exacerbation Disposition: HOME, SELF-CARE Condition: Improved Departure-Patient Inst. Decision time for Depature: 22:45 Referrals: TRACY KIRAN MD (PCP/Family) Primary Care Physician Patient Instructions: COPD Exacerbation, Adult ED, How to Use a Nebulizer ED, Pneumonia, Adult ED, Quitting Smoking for Older Adults Add. Discharge Instructions: TYLENOL AND MOTRIN NEEDED FOR PAIN OR FEVER OVER 101 LOTS OF CLEAR LIQUIDS--WATER, BROTH, JELLO, GATORADE CONTINUE YOUR REGULAR MEDICATIONS PRESCRIBED CONTINUE BREZTRI INHALER PRESCRIBED WEAR HOME OXYGEN ALL THE TIME FOR RIGHT NOW, AT 2 LITERS. YOU MAY INCREASE UP TO 4 LITERS IF NEEDED. RETURN TO ER IF YOU OXYGEN LEVEL STAYS BELOW 90% ON 4 LITERS FOLLOW UP WITH YOUR DR ON THURSDAY FOR FURTHER CARE RETURN TO ER IF SYMPTOMS WORSEN All discharge instructions reviewed with patient and/or family. Voiced understanding. Scripts Guaifenesin/Dextromethorphan (Mucinex Dm ER 1,200-60 mg Tab) 1,200 Mg-60 Mg Tbmp.12hr 1 EACH PO BID, #20 EA Prov: JOSE PIPER DO 01/23/23 Albuterol Sulfate (Albuterol Sulfate) 2.5 Mg/3 Ml (0.083 %) Vial.neb 2.5 MG INH Q4H PRN for WHEEZING, #50 EA 1 Refill Prov: JOSE PIPER DO 01/23/23 Methylprednisolone (Medrol) 4 Mg Tab.ds.pk 4 MG PO UD for 6 Days, #21 PKG PER DOSE PACK INSTRUCTIONS Prov: JOSE PIPER DO 01/23/23 Azithromycin (Zithromax) 500 Mg Tablet 500 MG PO DAILY for 5 Days, #5 TAB Prov: JOSE PIPER DO 01/23/23 Cefdinir (Cefdinir) 300 Mg Capsule 300 MG PO BID, #20 CAP Prov: JOSE PIPER DO 01/23/23 JOSE PIPER DO January 23, 2023 21:48
[2023-01-23 21:51] LABS: MAGNESIUM 1.8 MG/DL (1.6-2.4)
[2023-01-23 21:58] LABS: ERYTHROCYTE SEDIMENTATION RATE 17 MM/HR (0-30)
[2023-01-23 22:29] LABS: BILIRUBIN,URINE NEGATIVE (NEGATIVE); CLARITY,URINE CLEAR; COLOR,URINE YELLOW; GLUCOSE, URINE (UA) NEGATIVE (NEGATIVE); KETONES,URINE TRACE (NEGATIVE); LEUKOCYTE ESTERASE ,URINE NEGATIVE (NEGATIVE); NITRITE,URINE NEGATIVE (NEGATIVE); PH,URINE 5.5 (5-9); PROTEIN,URINE TRACE (NEGATIVE)
[2023-01-23 22:35] LABS: BACTERIA,URINE NEGATIVE /HPF
[2023-01-23] MEDS ORDERED: RX-ALBUTEROL NEB 2.5 MG/3 ML PACK #5 IH STA (22:43)
[2023-01-23] MEDS ORDERED: AZITHROMYCIN 250 MG TAB (ZITHROMAX) PO ONE (22:45)
[2023-01-23] MEDS ORDERED: ALBU2.5V4 INH ×2 (22:49→22:51)
[2023-01-23] MEDS ORDERED: CEFD300C3 PO ×2 (22:49→22:51)
[2023-01-23] MEDS ORDERED: AZIT500T PO ×2 (22:49→22:51)
[2023-01-23] MEDS ORDERED: METH4TAB PO ×2 (22:49→22:51)
[2023-01-23] MEDS ORDERED: GUAI1TBM19 PO ×2 (22:50→22:51)
[2023-01-23 23:04] VITALS: BP 137/78
--- NOTE | 2023-01-24 06:08 | Diagnostic Imaging Report ---
INDICATION: Dyspnea and fever. Comparison is made with prior examination of 06/24/2013. FINDINGS: The heart size is normal. There is air trapping compatible with COPD. There is no pleural effusion or pneumothorax. The mediastinum is unremarkable. IMPRESSION: COPD No other acute cardiopulmonary abnormality Dictated by: Dictated on workstation # [id number]
== END 2023-01-23 23:04 | disposition home or self-care (01) ==
LOC: EDUNIT# 21:17 → ER 21:20
DX: J18.9 Pneumonia, unspecified organism (principal); J44.1 Chronic obstructive pulmonary disease with (acute) exacerbation; F17.210 Nicotine dependence, cigarettes, uncomplicated; Z20.822 Contact with and (suspected) exposure to COVID-19; Z28.310 Unvaccinated for COVID-19; Z99.81 Dependence on supplemental oxygen
CPT/HCPCS: 36415; 71045; 80053; 81000; 83605; 83735; 83880; 85025; 85610; 85652; 85730; 86141; 87040; 87070; 87088; 87205; 87636; 93041; 94640

== ENCOUNTER 2023-02-04 12:08 | Observation (INO) | payer MEDICARE ==
[~2023-02-04] VITALS: Ht 180 cm; Wt 78.0 kg
[~2023-02-04 12:08] MED LIST changes: +ALBU2.5V4 INH; +AZIT500T PO; +CEFD300C3 PO; +GUAI1TBM19 PO; +METH4TAB PO
--- NOTE | 2023-02-04 12:25 | ED Cough/URI ---
General Chief Complaint: Cough/Cold/Flu Symptoms Stated Complaint: PNEUMONIA Source: patient Exam Limitations: no limitations History of Present Illness Date Seen by Provider: February 04, 2023 Time Seen by Provider: 12:12 Initial Comments 72-year-old male with history of COPD on 2 L of oxygen via nasal cannula chronically at night but increased recently to daily secondary to shortness of breath presents for continued shortness of breath. He states that symptoms s tarted on 01/16 and have been persistent. He was seen here on 01/23 and diagnosed with pneumonia. He was started on cefdinir and Zithromax and finished a course of antibiotics yesterday. He had a follow-up with his primary doctor today and she "did not like the way he looked and thought he might be dehydrated." She sent him here for further evaluation. He denies any fevers or chills. He typically only uses oxygen at night but lately has had to use it [id number]. He has a chronic productive cough which is increased recently. He and his daughter think that his symptoms have gotten slightly worse since he was evaluated last. All other systems reviewed and negative except documented per HPI. Voice recognition software was used to help create this chart Allergies and Home Medications Allergies Coded Allergies: diazepam (Verified Adverse Reaction, Unknown, GENERIC VERSION IS OKAY TO TAKE NOW PER PERSON, 06/18/22) Patient Home Medication List Home Medication List Reviewed: Yes Albuterol Sulfate (Albuterol Sulfate) 2.5 Mg/3 Ml (0.083 %) Vial.neb, 2.5 MG INH Q4H PRN for WHEEZING Prescribed by: JOSE PIPER on 01/23/232250 Atenolol (Atenolol) 50 Mg Tablet, 25 MG PO DAILY, (Reported) Entered as Reported by: FABRICIO ERWIN on 06/18/22 1634 Atorvastatin Calcium (Atorvastatin Calcium) 40 Mg Tablet, 40 MG PO DAILY, (Reported) Entered as Reported by: TRACY LIN on 05/07/22 1025 Azithromycin (Zithromax) 500 Mg Tablet, 500 MG PO DAILY Prescribed by: JOSE PIPER on 01/23/232250 Cefdinir (Cefdinir) 300 Mg Capsule, 300 MG PO BID Prescribed by: JOSE PIPER on 01/23/232250 Fluticasone/Salmeterol (Advair 500-50 Diskus) 500 Mcg-50 Mcg/Dose Blst.w.dev, 1 EACH IH DAILY, (Reported) Entered as Reported by: TRACY LIN on 05/07/22 1025 Guaifenesin/Dextromethorphan (Mucinex Dm ER 1,200-60 mg Tab) 1,200 Mg-60 Mg Tbmp.12hr, 1 EACH PO BID Prescribed by: JOSE PIPER on 01/23/23 225 Hydrocodone Bit/Acetaminophen (Lortab 7.5-325 Mg/15 Ml Udc) 15 Ml Solution, 10 ML PO Q4H PRN for PAIN-MODERATE (5-7) Prescribed by: DONTAE TUCKER on 06/26/22 1235 Methylprednisolone (Medrol) 4 Mg Tab.ds.pk, 4 MG PO UD Prescribed by: JOSE PIPER on 01/23/232250 Tiotropium [place] (Spiriva Respimat 1.25MCG/ACTUATION) 4 Gm Mist.inhal, 2 PUFF IH DAILY, (Reported) Entered as Reported by: BORIS CALDERON on 03/18/21 1411 Review of Systems Review of Systems Constitutional: see HPI Past Trwkpom-Pdjjxf-Txenzw Hx Patient Social History Tobacco Use?: No Smokeless Tobacco Frequency: Former User Use of E-Cig and/or Vaping dev: No Substance use?: No Alcohol Use?: No Immunizations Up To Date Tetanus Booster (TDap): Unknown PED Vaccines UTD: No First/Initial COVID19 Vaccinat: NO Second COVID19 Vaccination Andrew: NO Third COVID19 Vaccination Date: NO Seasonal Allergies Seasonal Allergies: Yes Past Medical History Surgery/Hospitalization HX: HIATAL HERNIA, COPD, HLD, HTN, GERD Surgeries: Yes (COLONOSCOPY/EGD, RIGHT CTR, VASECTOMY, CATARACTS;HIATAL HERNIA; CARD CATH) Abdominal, Cardiac, Eye Surgery, Vasectomy Respiratory: Yes COPD Currently Using CPAP: No Currently Using BIPAP: No Cardiac: Yes Coronary Artery Disease, High Cholesterol, Hypertension, Irregular Heartbeat Neurological: No Reproductive Disorders: No Sexually Transmitted Disease: No HIV/AIDS: No Genitourinary: No Gastrointestinal: Yes (GASTRITIS) Abdominal Hernia, Gastroesophageal Reflux, Hiatal Hernia Musculoskeletal: Yes Arthritis Endocrine: No HEENT: Yes Cataract Cancer: No Psychosocial: No Integumentary: No Blood Disorders: No Adverse Reaction/Blood Tranf: No Family Medical History SOCIAL HISTORY: -SMOKES UP TO 2 PACKS / WEEK -DENIES DRUG USE -DENIES ALCOHOL USE PAST SURGICAL HISTORY: -CARDIAC CATH 02/[address] EASTON--NORMAL/MINIMAL NON-OCCLUSIVE DISEASE, EF 60% -BILATERAL CATARACT SURGERY 2021 -HIATAL HERNIA REPAIR 06/[address] TUCKER -ENDOSCOPIES Physical Exam Vital Signs - First Documented 02/04/23 12:15 Temp 35.2 Pulse 63 Resp 16 B/P (MAP) 134/88 (103) Pulse Ox 98 O2 Delivery Nasal Cannula O2 Flow Rate 2.00 Capillary Refill : Height: 5'11.00" Weight: 191lbs. 0.0oz. 86.353246sh; 25.00 BMI Method:Stated General Appearance: WD/WN, no apparent distress HEENT: normal ENT inspection, pharynx normal Neck: full range of motion, supple, normal inspection Respiratory: chest non-tender, no respiratory distress, no accessory muscle use, other (Slight rhonchi bilaterally.) Cardiovascular: regular rate, rhythm, no murmur Gastrointestinal: normal bowel sounds, non tender, soft, no organomegaly Neurologic/Psychiatric: alert, normal mood/affect, oriented x 3 Skin: normal color, warm/dry Progress/Results/Core Measures Suspected Sepsis SIRS Temperature: Pulse: Respiratory Rate: Laboratory Tests 02/04/23 13:15: White Blood Count 6.9 Blood Pressure / Mean: Laboratory Tests 02/04/23 13:15: Creatinine 0.84, Platelet Count 280, Total Bilirubin 0.8 Results/Orders Lab Results Laboratory Tests Test 02/04/23 13:15 Range/Units White Blood Count 6.9 4.3-11.0 10^3/uL Red Blood Count 4.22 L 4.30-5.52 10^6/uL Hemoglobin 13.6 13.3-17.7 g/dL Hematocrit 40 40-54 % Mean Corpuscular Volume 94 80-99 fL Mean Corpuscular Hemoglobin 32 25-34 pg Mean Corpuscular Hemoglobin Concent 34 32-36 g/dL Red Cell Distribution Width 12.4 10.0-14.5 % Platelet Count 280 130-400 10^3/uL Mean Platelet Volume 9.5 9.0-12.2 fL Immature Granulocyte % (Auto) 0 % Neutrophils (%) (Auto) 56 42-75 % Lymphocytes (%) (Auto) 32 12-44 % Monocytes (%) (Auto) 10 0-12 % Eosinophils (%) (Auto) 1 0-10 % Basophils (%) (Auto) 1 0-10 % Neutrophils # (Auto) 3.9 1.8-7.8 10^3/uL Lymphocytes # (Auto) 2.2 1.0-4.0 10^3/uL Monocytes # (Auto) 0.7 0.0-1.0 10^3/uL Eosinophils # (Auto) 0.1 0.0-0.3 10^3/uL Basophils # (Auto) 0.1 0.0-0.1 10^3/uL Immature Granulocyte # (Auto) 0.0 0.0-0.1 10^3/uL Sodium Level 135 135-145 MMOL/L Potassium Level 4.0 3.6-5.0 MMOL/L Chloride Level 102 98-107 MMOL/L Carbon Dioxide Level 24 21-32 MMOL/L Anion Gap 9 5-14 MMOL/L Blood Urea Nitrogen 8 7-18 MG/DL Creatinine 0.84 0.60-1.30 MG/DL Estimat Glomerular Filtration Rate 94 BUN/Creatinine Ratio 10 Glucose Level 99 70-105 MG/DL Calcium Level 9.5 8.5-10.1 MG/DL Corrected Calcium 10.0 8.5-10.1 MG/DL Total Bilirubin 0.8 0.1-1.0 MG/DL Aspartate Amino Transf (AST/SGOT) 22 5-34 U/L Alanine Aminotransferase (ALT/SGPT) 25 0-55 U/L Alkaline Phosphatase 88 40-136 U/L Total Protein 7.0 6.4-8.2 GM/DL Albumin 3.4 3.2-4.5 GM/DL My Orders Orders - CURTISCARLITA DO Chest Pa/Lat (2 View) (02/04/23 12:21) Comprehensive Metabolic Panel (02/04/23 12:48) Cbc With Automated Diff (02/04/23 12:48) Piperacillin Sodium/Tazobactam (Zosyn Vi (02/04/23 13:00) Blood Culture (02/04/23 12:51) Ed Admission (Communication) (02/04/23 13:49) Medications Given in ED Current Medications Medications Dose Ordered Sig/Ade Route Start Time Stop Time Status Last Admin Dose Admin Piperacillin Sod/ Tazobactam Sod 4.5 gm/Sodium Chloride 100 ml @ 200 mls/hr ONCE ONCE IV 02/04/23 13:00 02/04/23 13:29 DC 02/04/23 13:24 200 MLS/HR Vital Signs/I&O 02/04/23 02/04/23 02/04/23 12:15 12:25 15:18 Temp 35.2 Pulse 63 61 Resp 16 16 B/P (MAP) 134/88 (103) 123/75 Pulse Ox 98 99 O2 Delivery Nasal Cannula Room Air Room Air O2 Flow Rate 2.00 Capillary Refill : Departure Communication (Admissions) Patient is hemodynamically stable. He is on 3 to 4 L of oxygen via nasal cannula to maintain oxygen saturation around 92 to 94%. Chest x-ray shows significant left lower lobe pneumonia. He has failed outpatient therapy with cefdinir and Zithromax. Likely needs IV antibiotics for resolution. Cultures obtained prior to administration of IV antibiotics. Spoke to Dr. Estrada who accepts the patient in admission. Impression Primary Impression: CAP (community acquired pneumonia) Qualified Codes: J18.9 - Pneumonia, unspecified organism Disposition: ADMITTED INPATIENT Condition: Stable Departure-Patient Inst. Referrals: TRACY KIRAN MD (PCP/Family) Primary Care Physician CARLITA ACEVEDO DO February 04, 2023 12:25
--- NOTE | 2023-02-04 12:43 | Diagnostic Imaging Report ---
CLINICAL HISTORY: Patient with dyspnea. EXAM: Chest x-ray, PA and lateral views. COMPARISON: Chest x-ray dated 01/23/2023. FINDINGS: Lungs/pleura: There are increased lung markings and infiltrate involving the left lung base. The remainder of the lungs is clear. A lobulated right hemidiaphragm is seen. There is no pneumothorax. There is no pleural effusion. Mediastinum: Unremarkable. Pulmonary vasculature: Unremarkable. Heart: Unremarkable. Bones/extrathoracic soft tissue: There are degenerative spurs involving the thoracic spine. IMPRESSION: Left lower lobe pneumonia. Dictated by: Dictated on workstation # [id number]
[2023-02-04] MEDS ORDERED: PIPERACILLIN SODIUM/TAZOBACTAM 4.5 GM in NS (IVPB) 100 ML IV ONE (13:00)
[2023-02-04 13:30] LABS: BASOPHILS # (AUTO) 0.1 10^3/uL (0.0-0.1); BASOPHILS % (AUTO) 1 % (0-10); EOSINOPHILS # (AUTO) 0.1 10^3/uL (0.0-0.3); EOSINOPHILS % (AUTO) 1 % (0-10); HEMATOCRIT 40 % (40-54); HEMOGLOBIN 13.6 g/dL (13.3-17.7); LYMPHOCYTES # (AUTO) 2.2 10^3/uL (1.0-4.0); LYMPHOCYTES % (AUTO) 32 % (12-44); MEAN CORPUSCULAR HEMOGLOBIN 32 pg (25-34); MEAN CORPUSCULAR HGB CONC 34 g/dL (32-36); MEAN CORPUSCULAR VOLUME 94 fL (80-99); MEAN PLATELET VOLUME 9.5 fL (9.0-12.2); MONOCYTES # (AUTO) 0.7 10^3/uL (0.0-1.0); MONOCYTES % (AUTO) 10 % (0-12); NEUTROPHILS # (AUTO) 3.9 10^3/uL (1.8-7.8); NEUTROPHILS % (AUTO) 56 % (42-75); PLATELET COUNT 280 10^3/uL (130-400); WHITE BLOOD COUNT 6.9 10^3/uL (4.3-11.0)
[2023-02-04 13:39] LABS: ALBUMIN 3.4 GM/DL (3.2-4.5)
[2023-02-04 13:40] LABS: CALCIUM 9.5 MG/DL (8.5-10.1)
[2023-02-04 13:43] LABS: BILIRUBIN,TOTAL 0.8 MG/DL (0.1-1.0)
[2023-02-04 13:45] LABS: CREATININE SERUM 0.84 MG/DL (0.60-1.30)
--- NOTE | 2023-02-04 13:53 | History & Physical ---
History of Present Illness HPI/Chief Complaint Chief complaint: Pneumonia with acute hypoxic respiratory failure HPI: This is a 72-year-old who has a past medical history of COPD who presents to the ER with shortness of breath found to have hypoxia and diagnosed with pneumonia. Patient failed outpatient oral antibiotics. He will be placed on IV antibiotics and steroids nebulized treatments and oxygen supplementation. Source: patient, family Exam Limitations: no limitations Date Seen 02/04/23 Time Seen by a Provider: 14:00 Attending Physician Angela Adams MD PCP Admitting Physician: Attending Physician: Referring Physician Date of Admission Home Medications & Allergies Home Medications Reviewed patient Home Medication Reconciliation performed by pharmacy medication reconciliations aerospace physiological technician and/or nursing. Patients Allergies have been reviewed. Allergies Allergies Coded Allergies diazepam (Verified Adverse Reaction, Unknown, GENERIC VERSION IS OKAY TO TAKE NOW PER PERSON, 06/18/22) Past Zybcofa-Prydip-Wfukuo Hx Past Med/Social Hx: Reviewed Nursing Past Med/Soc Hx, Reviewed and Corrections made Patient Social History Marrital Status: Employed/Student: retired Alcohol Use: Denies Use Smoking Status: Former Smoker Type Used: Cigarettes 2nd Hand Smoke Exposure: Yes Recent Hopitalizations: No Immunizations Up To Date Tetanus Booster (TDap): Unknown Pediatric: No Date of Pneumonia Vaccine: Jun 10, 2022 Seasonal Allergies Seasonal Allergies: Yes Past Medical History Surgeries: Abdominal, Cardiac, Eye Surgery, Vasectomy Respiratory: COPD, Pneumonia Currently Using CPAP: No Currently Using BIPAP: No Cardiac: Coronary Artery Disease, High Cholesterol, Hypertension, Irregular Heartbeat Reproductive: No Sexually Transmitted Disease: No HIV/AIDS: No Gastrointestinal: Abdominal Hernia, Gastroesophageal Reflux, Hiatal Hernia Musculoskeletal: Arthritis HEENT: Cataract History of Blood Disorders: No Adverse Reaction to Blood Caballero: No Family History SOCIAL HISTORY: -SMOKES UP TO 2 PACKS / WEEK -DENIES DRUG USE -DENIES ALCOHOL USE PAST SURGICAL HISTORY: -CARDIAC CATH 02/[address] EASTON--NORMAL/MINIMAL NON-OCCLUSIVE DISEASE, EF 60% -BILATERAL CATARACT SURGERY 2021 -HIATAL HERNIA REPAIR 06/[address] TUCKER -ENDOSCOPIES Review of Systems Constitutional: see HPI, dizziness, fever, malaise, weakness Respiratory: cough, dyspnea on exertion Physical Exam Physical Exam Vital Signs Vital Signs - First Documented 02/04/23 02/04/23 12:15 16:31 Temp 35.2 Pulse 63 Resp 16 B/P (MAP) 134/88 (103) Pulse Ox 98 O2 Delivery Nasal Cannula O2 Flow Rate 2.00 FiO2 28 Capillary Refill : Less Than 3 Seconds Height, Weight, BMI Height: 5'11.00" Weight: 191lbs. 0.0oz. 86.582323ck; 24.00 BMI Method:Stated General Appearance: WD/WN, Anxious, Chronically ill, Mild Distress Eyes: Bilateral Eye Normal Inspection, Bilateral Eye PERRL HEENT: PERRL/EOMI, Normal ENT Inspection, Pharynx Normal Neck: Full Range of Motion, Normal Inspection, Non Tender, Supple, Carotid Bruit Respiratory: Chest Non Tender, No Accessory Muscle Use, No Respiratory Distress, Crackles, Decreased Breath Sounds, Wheezing Cardiovascular: Regular Rate, Rhythm, No Edema, No Gallop, No JVD, No Murmur, Normal Peripheral Pulses Gastrointestinal: Normal Bowel Sounds, No Organomegaly, No Pulsatile Mass, Non Tender, Soft Back: Normal Inspection, No CVA Tenderness, No Vertebral Tenderness Extremity: Normal Capillary Refill, Normal Inspection, Normal Range of Motion, Non Tender, No Calf Tenderness, No Pedal Edema Neurologic/Psychiatric: Alert, Oriented x3, No Motor/Sensory Deficits, Normal Mood/Affect Skin: Normal Color, Warm/Dry Lymphatic: No Adenopathy Results Results/Procedures Labs Laboratory Tests 02/04/23 13:15 Patient resulted labs reviewed. Assessment/Plan Admission Diagnosis Assessment: Acute hypoxic respiratory failure Exacerbation of COPD Pneumonia CAD Hypertension Hyperlipidemia Plan: IV antibiotics Oxygen Nebulizers Supportive care Admission Status: Observation NAV POOL DO February 04, 2023 13:53
[2023-02-04] MEDS ORDERED: BISACODYL 10 MG SUPP (DULCOLAX) PR PRN (16:15)
[2023-02-04] MEDS ORDERED: diphenhydrAMINE 25 MG TAB (BENADRYL) PO PRN (16:15)
[2023-02-04] MEDS ORDERED: LACTULOSE SYRUP 10GM/15ML (ENULOSE) 30ML UDC PO PRN (16:15)
[2023-02-04] MEDS ORDERED: MELATONIN 3 MG TABLET PO PRN (16:15)
[2023-02-04] MEDS ORDERED: PHARMACY TO DOSE IV SCH (16:15)
[2023-02-04] MEDS ORDERED: BENZONATATE 100 MG (TESSALON) CAPSULE PO PRN (16:15)
[2023-02-04] MEDS ORDERED: ACETAMINOPHEN 325 MG TABLET PO PRN (16:15)
[2023-02-04] MEDS ORDERED: ONDANSETRON 4 MG (ZOFRAN) ORAL DISSOLVE TAB PO PRN (16:15)
[2023-02-04] MEDS ORDERED: ONDANSETRON 4 MG/2 ML (SDV) Z0FRAN IV PRN (16:15)
[2023-02-04] MEDS ORDERED: polyethylene glycoL POWDER 17 GM (MIRALAX) PACK PO PRN (16:15)
[2023-02-04] MEDS ORDERED: MILK OF MAGNESIA 400 MG/5 ML 30 ML UDC PO PRN (16:15)
[2023-02-04] MEDS ORDERED: ANTACID SUSP 30 ML UDC (MYLANTA) PO PRN (16:15)
[2023-02-04] MEDS ORDERED: CALCIUM CARBONATE 500 MG (TUMS) TAB.CHEW PO PRN (16:15)
[2023-02-04] MEDS ORDERED: HYDROmorphone 2 MG/ML VIAL (DILAUDID) IV PRN (16:15)
[2023-02-04] MEDS ORDERED: diphenhydrAMINE 50 MG/ML INJ (BENADRYL) IVP PRN (16:15)
[2023-02-04] MEDS ORDERED: guaiFENesin/CODEINE (ROBITUSSIN AC) 10ML UDC PO PRN (16:15)
[2023-02-04 16:27] VITALS: BP 131/67
[2023-02-04 16:31] VITALS: BP 134/88
[2023-02-04] MEDS ORDERED: ENOXAPARIN 40 MG/0.4 ML (LOVENOX) SYR SC SCH (17:00)
[2023-02-04] MEDS ORDERED: VANCOMYCIN 1500MG/300ML PREMIX IV NR (17:00)
[2023-02-04] MEDS: NS IV 1000 ML 1,000 ML IV SCH (17:51)
[2023-02-04] MEDS: RT-ALBUTEROL/IPRATROPIUM 3 ML (DUONEB) VIAL INH SCH (19:11)
[2023-02-04] MEDS: PIPERACILLIN SODIUM/TAZOBACTAM 4.5 GM in NS (IVPB) 100 ML IV SCH (19:37)
[2023-02-04 19:38] VITALS: BP 107/66
[2023-02-04] MEDS ORDERED: RT-ALBUTEROL/IPRATROPIUM 3 ML (DUONEB) VIAL INH PRN (20:00)
[2023-02-04] MEDS: DOCUSATE SODIUM 100 MG (COLACE) CAP PO SCH (20:30)
[2023-02-04] MEDS: SENNOSIDES 8.6 MG (SENOKOT) TAB PO SCH (20:30)
[2023-02-05 00:06] VITALS: BP 117/73
[2023-02-05] MEDS: RT-ALBUTEROL/IPRATROPIUM 3 ML (DUONEB) VIAL INH SCH ×5 (00:33→14:39)
[2023-02-05] MEDS: PIPERACILLIN SODIUM/TAZOBACTAM 4.5 GM in NS (IVPB) 100 ML IV SCH ×2 (03:04→12:17)
[2023-02-05 04:03] VITALS: BP 131/74
[2023-02-05] MEDS ORDERED: VANCOMYCIN 1250 MG/NS 250 ML PREMIX IV SCH (05:00)
--- NOTE | 2023-02-05 05:18 | Progress Note ---
Subjective Date Seen by a Provider: Feb 05, 2023 Time Seen by a Provider: 11:00 Objective Exam Last Set of Vital Signs Vital Signs Date Time Temp Pulse Resp B/P (MAP) Pulse Ox O2 Delivery O2 Flow Rate FiO2 02/05/23 04:03 37.6 94 18 131/74 (93) 95 Nasal Cannula 2.00 02/04/23 16:31 28 Capillary Refill : Less Than 3 Seconds I&O Intake and Output 02/05/23 00:00 Intake Total 610 ml Balance 610 ml Intake Oral 510 ml IV Total 100 ml # Voids 1 Daily Weight Change No Results Lab Laboratory Tests 02/04/23 13:15: White Blood Count 6.9, Red Blood Count 4.22L, Hemoglobin 13.6, Hematocrit 40, Mean Corpuscular Volume 94, Mean Corpuscular Hemoglobin 32, Mean Corpuscular Hemoglobin Concent 34, Red Cell Distribution Width 12.4, Platelet Count 280, Mean Platelet Volume 9.5, Immature Granulocyte % (Auto) 0, Neutrophils (%) (Auto) 56, Lymphocytes (%) (Auto) 32, Monocytes (%) (Auto) 10, Eosinophils (%) (Auto) 1, Basophils (%) (Auto) 1, Neutrophils # (Auto) 3.9, Lymphocytes # (Auto) 2.2, Monocytes # (Auto) 0.7, Eosinophils # (Auto) 0.1, Basophils # (Auto) 0.1, Immature Granulocyte # (Auto) 0.0, Sodium Level 135, Potassium Level 4.0, Chloride Level 102, Carbon Dioxide Level 24, Anion Gap 9, Blood Urea Nitrogen 8, Creatinine 0.84, Estimat Glomerular Filtration Rate 94, BUN/Creatinine Ratio 10, Glucose Level 99, Calcium Level 9.5, Corrected Calcium 10.0, Total Bilirubin 0.8, Aspartate Amino Transf (AST/SGOT) 22, Alanine Aminotransferase (ALT/SGPT) 25, Alkaline Phosphatase 88, Total Protein 7.0, Albumin 3.4 02/05/23 04:55: NAV POOL DO Feb 05, 2023 05:18
[2023-02-05 05:20] LABS: BASOPHILS # (AUTO) 0.1 10^3/uL (0.0-0.1); BASOPHILS % (AUTO) 1 % (0-10); EOSINOPHILS # (AUTO) 0.1 10^3/uL (0.0-0.3); EOSINOPHILS % (AUTO) 1 % (0-10); HEMATOCRIT 37 % (40-54); HEMOGLOBIN 12.3 g/dL (13.3-17.7); LYMPHOCYTES % (AUTO) 27 % (12-44); MEAN CORPUSCULAR HEMOGLOBIN 32 pg (25-34); MEAN CORPUSCULAR HGB CONC 33 g/dL (32-36); MEAN CORPUSCULAR VOLUME 94 fL (80-99); MEAN PLATELET VOLUME 9.5 fL (9.0-12.2); MONOCYTES # (AUTO) 0.5 10^3/uL (0.0-1.0); MONOCYTES % (AUTO) 7 % (0-12); NEUTROPHILS # (AUTO) 4.6 10^3/uL (1.8-7.8); NEUTROPHILS % (AUTO) 63 % (42-75); PLATELET COUNT 263 10^3/uL (130-400); WHITE BLOOD COUNT 7.3 10^3/uL (4.3-11.0)
[2023-02-05 05:43] LABS: ALBUMIN 2.9 GM/DL (3.2-4.5)
[2023-02-05 05:44] LABS: POTASSIUM 3.9 MMOL/L (3.6-5.0)
[2023-02-05] MEDS: NS IV 1000 ML 1,000 ML IV SCH (05:44)
[2023-02-05 05:45] LABS: CALCIUM 8.6 MG/DL (8.5-10.1)
[2023-02-05 05:48] LABS: BILIRUBIN,TOTAL 0.9 MG/DL (0.1-1.0)
[2023-02-05 05:50] LABS: CREATININE SERUM 0.89 MG/DL (0.60-1.30)
[2023-02-05 07:35] VITALS: BP 114/71
[2023-02-05] MEDS: SENNOSIDES 8.6 MG (SENOKOT) TAB PO SCH (09:10)
[2023-02-05] MEDS: DOCUSATE SODIUM 100 MG (COLACE) CAP PO SCH (09:10)
[2023-02-05] MEDS ORDERED: ASPI-1238 PO (10:12)
[2023-02-05] MEDS ORDERED: BUDE10.7 INH (10:12)
[2023-02-05] MEDS ORDERED: MULT-1136 PO (10:12)
[2023-02-05] MEDS ORDERED: OMEP40CA6 PO (10:12)
[2023-02-05] MEDS ORDERED: ALBU18HF2 INH (10:12)
[2023-02-05 11:30] VITALS: BP 110/66
[2023-02-05] MEDS ORDERED: DOXY100T2 PO (12:14)
[2023-02-05] MEDS ORDERED: BENZ100C18 PO (12:14)
[2023-02-05] MEDS ORDERED: AMOX1TAB12 PO (12:14)
[2023-02-05] MEDS ORDERED: PRED10TA22 PO (12:14)
--- NOTE | 2023-02-05 12:15 | Discharge Summary ---
Diagnosis/Chief Complaint Date of Admission February 04, 2023 at 15:18 Date of Discharge Discharge Date: Feb 05, 2023 Discharge Diagnosis Assessment: Acute hypoxic respiratory failure Exacerbation of COPD Pneumonia CAD Hypertension Hyperlipidemia Plan: IV antibiotics Oxygen Nebulizers Supportive care Discharge Summary Discharge Physical Examination Allergies: Coded Allergies: diazepam (Verified Adverse Reaction, Unknown, GENERIC VERSION IS OKAY TO TAKE NOW PER PERSON, 06/18/22) Vitals & I&Os Vital Signs Date Time Temp Pulse Resp B/P (MAP) Pulse Ox O2 Delivery O2 Flow Rate FiO2 02/05/23 14:50 36.5 96 18 110/66 95 Nasal Cannula 1.00 02/04/23 16:31 28 General Appearance: Alert, Oriented X3, Cooperative Respiratory: Clear to Auscultation Cardiovascular: Regular Rate Psych/Mental Status: Mental Status NL Hospital Course Was the Problem List Reviewed?: Yes Patient had an uneventful hospital course after he had failed outpatient treatment of antibiotics and steroids so he was given IV antibiotics nebulized treatments oxygen supplementation and overall he was deemed stable for discharge after improvement and antibiotics were sent into the pharmacy. Labs (last 24 hrs) Laboratory Tests 02/04/23 13:15: White Blood Count 6.9, Red Blood Count 4.22L, Hemoglobin 13.6, Hematocrit 40, Mean Corpuscular Volume 94, Mean Corpuscular Hemoglobin 32, Mean Corpuscular Hemoglobin Concent 34, Red Cell Distribution Width 12.4, Platelet Count 280, Mean Platelet Volume 9.5, Immature Granulocyte % (Auto) 0, Neutrophils (%) (Auto) 56, Lymphocytes (%) (Auto) 32, Monocytes (%) (Auto) 10, Eosinophils (%) (Auto) 1, Basophils (%) (Auto) 1, Neutrophils # (Auto) 3.9, Lymphocytes # (Auto) 2.2, Monocytes # (Auto) 0.7, Eosinophils # (Auto) 0.1, Basophils # (Auto) 0.1, Immature Granulocyte # (Auto) 0.0, Sodium Level 135, Potassium Level 4.0, Chloride Level 102, Carbon Dioxide Level 24, Anion Gap 9, Blood Urea Nitrogen 8, Creatinine 0.84, Estimat Glomerular Filtration Rate 94, BUN/Creatinine Ratio 10, Glucose Level 99, Calcium Level 9.5, Corrected Calcium 10.0, Total Bilirubin 0. 8, Aspartate Amino Transf (AST/SGOT) 22, Alanine Aminotransferase (ALT/SGPT) 25, Alkaline Phosphatase 88, Total Protein 7.0, Albumin 3.4 02/05/23 04:55: White Blood Count 7.3, Red Blood Count 3.91L, Hemoglobin 12.3L, Hematocrit 37L, Mean Corpuscular Volume 94, Mean Corpuscular Hemoglobin 32, Mean Corpuscular Hemoglobin Concent 33, Red Cell Distribution Width 12.4, Platelet Count 263, Mean Platelet Volume 9.5, Immature Granulocyte % (Auto) 0, Neutrophils (%) (Auto) 63, Lymphocytes (%) (Auto) 27, Monocytes (%) (Auto) 7, Eosinophils (%) (Auto) 1, Basophils (%) (Auto) 1, Neutrophils # (Auto) 4.6, Lymphocytes # (Auto) 2.0, Monocytes # (Auto) 0.5, Eosinophils # (Auto) 0.1, Basophils # (Auto) 0.1, Immature Granulocyte # (Auto) 0.0, Sodium Level 134L, Potassium Level 3.9, Chloride Level 104, Carbon Dioxide Level 21, Anion Gap 9, Blood Urea Nitrogen 10, Creatinine 0.89, Estimat Glomerular Filtration Rate 92, BUN/Creatinine Ratio 11, Glucose Level 89, Calcium Level 8.6, Corrected Calcium 9.5, Total Bilirubin 0.9, Aspartate Amino Transf (AST/SGOT) 19, Alanine Aminotransferase (ALT/SGPT) 19, Alkaline Phosphatase 76, Total Protein 6.0L, Albumin 2.9L Microbiology 02/04/23 Blood Culture - Preliminary, Resulted No growth Pending Labs Microbiology Date/Time Source Procedure Growth Status 02/04/23 13:21 Peripheral Lt Ac Blood Culture - Preliminary No growth Resulted 02/04/23 13:15 Peripheral Rt Ac Blood Culture - Preliminary No growth Resulted Laboratory Tests 02/04/23 13:15: White Blood Count 6.9, Red Blood Count 4.22, Hemoglobin 13.6, Hematocrit 40, Mean Corpuscular Volume 94, Mean Corpuscular Hemoglobin 32, Mean Corpuscular Hemoglobin Concent 34, Red Cell Distribution Width 12.4, Platelet Count 280, Mean Platelet Volume 9.5, Immature Granulocyte % (Auto) 0, Neutrophils (%) (Auto) 56, Lymphocytes (%) (Auto) 32, Monocytes (%) (Auto) 10, Eosinophils (%) (Auto) 1, Basophils (%) (Auto) 1, Neutrophils # (Auto) 3.9, Lymphocytes # (Auto) 2.2, Monocytes # (Auto) 0.7, Eosinophils # (Auto) 0.1, Basophils # (Auto) 0.1, Immature Granulocyte # (Auto) 0.0, Sodium Level 135, Potassium Level 4.0, Chloride Level 102, Carbon Dioxide Level 24, Anion Gap 9, Blood Urea Nitrogen 8, Creatinine 0.84, Estimat Glomerular Filtration Rate 94, BUN/Creatinine Ratio 10, Glucose Level 99, Calcium Level 9.5, Corrected Calcium 10.0, Total Bilirubin 0.8, Aspartate Amino Transf (AST/SGOT) 22, Alanine Aminotransferase (ALT/SGPT) 25, Alkaline Phosphatase 88, Total Protein 7.0, Albumin 3.4 02/05/23 04:55: White Blood Count 7.3, Red Blood Count 3.91, Hemoglobin 12.3, Hematocrit 37, Mean Corpuscular Volume 94, Mean Corpuscular Hemoglobin 32, Mean Corpuscular Hemoglobin Concent 33, Red Cell Distribution Width 12.4, Platelet Count 263, Mean Platelet Volume 9.5, Immature Granulocyte % (Auto) 0, Neutrophils (%) (Auto) 63, Lymphocytes (%) (Auto) 27, Monocytes (%) (Auto) 7, Eosinophils (%) (Auto) 1, Basophils (%) (Auto) 1, Neutrophils # (Auto) 4.6, Lymphocytes # (Auto) 2.0, Monocytes # (Auto) 0.5, Eosinophils # (Auto) 0.1, Basophils # (Auto) 0.1, Immature Granulocyte # (Auto) 0.0, Sodium Level 134, Potassium Level 3.9, Chloride Level 104, Carbon Dioxide Level 21, Anion Gap 9, Blood Urea Nitrogen 10, Creatinine 0.89, Estimat Glomerular Filtration Rate 92, BUN/Creatinine Ratio 11, Glucose Level 89, Calcium Level 8.6, Corrected Calcium 9.5, Total Bilirubin 0.9, Aspartate Amino Transf (AST/SGOT) 19, Alanine Aminotransferase (ALT/SGPT) 19, Alkaline Phosphatase 76, Total Protein 6.0, Albumin 2.9 Discharge Home Medications: Active Scripts Active Doxycycline Hyclate 100 Mg Tablet 100 Mg PO BID Prednisone 10 Mg Tab.ds.pk 10 Mg PO DAILY Take4 tabs(40mg)daily,decrease by 1 tab(10MG)daily. Amox Tr-K Clv 875-125 mg Tab (Amoxicillin/Potassium Clav) 875 Mg-125 Mg Tablet 1 Each PO BID Tessalon Perles (Benzonatate) 100 Mg Capsule 200 Mg PO TID PRN Reported Multivitamin 1 Each Tablet 1 Each PO DAILY Aspirin EC (Aspirin) 81 Mg Tablet.dr 81 Mg PO DAILY Ventolin Hfa (Albuterol Sulfate) 90 Mcg Hfa.aer.ad 2 Puff INH Q6H PRN Omeprazole 40 Mg Capsule.dr 40 Mg PO DAILY PRN Breztri Aerosphere Inhaler (Budesonide/Glycopyr/Formoterol) 160 Mcg-9 Mcg-4.8 Mcg/Actuation Hfa.aer.ad 2 Puff INH BID Atenolol 50 Mg Tablet 25 Mg PO DAILY TAKES OF A 50MG TAB Atorvastatin Calcium 40 Mg Tablet 40 Mg PO HS Instructions to patient/family Please see electronic discharge instructions given to patient. NAV POOL DO Feb 05, 2023 12:15
[2023-02-05 14:50] VITALS: BP 110/66
[2023-02-06] MEDS ORDERED: TROUGH ORDER-PHARMACY XX NR (04:00)
== END 2023-02-05 15:05 | disposition home or self-care (01) ==
LOC: EDUNIT# 12:08 → ER 12:10 → UNDOADMOB 15:18 → 4TH 15:18 → UNDODISOB 02-05 15:05
PROVIDERS: ADMIT Internal Medicine; ATTEND Internal Medicine
DX: J96.01 Acute respiratory failure with hypoxia (principal); J44.1 Chronic obstructive pulmonary disease with (acute) exacerbation; J18.9 Pneumonia, unspecified organism; I25.10 Atherosclerotic heart disease of native coronary artery without angina pectoris; I10 Essential (primary) hypertension; E78.5 Hyperlipidemia, unspecified; Z87.891 Personal history of nicotine dependence
CPT/HCPCS: 71046; 80053 ×2; 85025 ×2; 87040; 94640 ×2; 94760 ×2; 96372; 96375; 96376 ×2; 99284; G0378; 36415

== ENCOUNTER → 2023-06-02 | Outpatient (CLI) | payer MEDICARE ==
[~2023-06-02] MED LIST changes: +ALBU18HF2 INH; +AMOX1TAB12 PO; +ASPI-1238 PO; +BENZ100C18 PO; +BUDE10.7 INH; +DOXY100T2 PO; +MULT-1136 PO; +OMEP40CA6 PO; +PRED10TA22 PO; +RT-ALBUTEROL SULF 2.5 MG/3 ML PRE-MIX VIAL INH ONE
== END ==
LOC: RT 07:26
PROVIDERS: ATTEND Pediatrics
DX: J44.9 Chronic obstructive pulmonary disease, unspecified (principal)
CPT/HCPCS: 94060; 94726; 94729

== ENCOUNTER → 2023-06-30 | Outpatient (CLI) | payer MEDICARE ==
[~2023-06-30] MED LIST changes: -RT-ALBUTEROL SULF 2.5 MG/3 ML PRE-MIX VIAL INH ONE
--- NOTE | 2023-06-30 09:38 | Diagnostic Imaging Report ---
PROCEDURE: CT chest without contrast. TECHNIQUE: Multiple contiguous axial images were obtained through the chest without the use of intravenous contrast. Auto Exposure Controls were utilized during the CT exam to meet ALARA standards for radiation dose reduction. INDICATION: Chronic cough. COMPARISON: 11/23/2020 FINDINGS: No significant adenopathy within the chest. Mild scattered vascular calcifications without aneurysmal dilatation of thoracic aorta. The heart is within normal limits in size. No significant pericardial effusion. No pleural effusion. No significant hiatal hernia on today's examination. The trachea is patent. No pneumothorax. Moderate background emphysematous changes with associated air-trapping again noted. This is associated with minimal bibasilar scarring and fibrosis. No new suspicious pulmonary nodule or consolidation. Minimal biapical pleural-parenchymal scarring. The visualized upper abdomen is unremarkable. Compression fracture of T8 is identified with approximately 50% loss of vertebral body height and increased density within the vertebral body. No significant retropulsion or central canal stenosis. This is new from the prior CT examination. Scattered osseous degenerative changes. IMPRESSION: Moderate background emphysematous changes with associated air trapping without new pulmonary consolidation or suspicious nodule with minimal bibasilar scarring and/or fibrosis. Interval compression deformity of T8 with approximately 50% loss of vertebral body height. Chronicity is uncertain, though this is new since November 2020. Given increased density, this suggests this is possibly healing and subacute. Recommend correlation for focal pain at this location. If further evaluation is desired, MRI of the thoracic spine could be obtained. Dictated by: Dictated on workstation # [id number]
== END ==
LOC: RAD 07:34
PROVIDERS: ATTEND Internal Medicine Critical Care Medicine
DX: J43.9 Emphysema, unspecified (principal); M43.9 Deforming dorsopathy, unspecified
CPT/HCPCS: 71250